=== PATIENT | female | born 1965 | race Caucasian/White ===

== ENCOUNTER 2017-03-11 17:40 | Emergency (ER) | payer OTHER ==
[~2017-03-11] VITALS: Ht 152.4 cm; Wt 65.9 kg
[~2017-03-11 17:40] MED LIST: CALC-719 PO; DULO20CA30 PO; FOLI1TAB15 PO; HYD25 PO; LORA5SOL30 PO
[2017-03-11 17:44] VITALS: BP 124/81
[2017-03-11] MEDS ORDERED: ETAN25DI SQ (17:46)
[2017-03-11] MEDS ORDERED: CHOL50004 PO (17:46)
[2017-03-11] MEDS ORDERED: MECL-111 PO (17:46)
[2017-03-11] MEDS ORDERED: OMEP20 PO (17:46)
== END 2017-03-11 19:20 | disposition left against medical advice (07) ==
LOC: EMS 17:41
DX: Z53.21 Procedure and treatment not carried out due to patient leaving prior to being seen by health care provider (principal)

== ENCOUNTER 2017-05-11 10:35 | Emergency (ER) | payer OTHER ==
[~2017-05-11] VITALS: Ht 157.5 cm; Wt 75.0 kg
[~2017-05-11 10:35] MED LIST changes: -CALC-719 PO; +CHOL50004 PO; -DULO20CA30 PO; +ETAN25DI SQ; +MECL-111 PO; +OMEP20 PO
[2017-05-11] MEDS ORDERED: DOXY100C PO (10:48)
[2017-05-11] MEDS ORDERED: LORA10TA7 PO (14:53)
[2017-05-11] MEDS ORDERED: ACETAMINOPHEN 325 MG TABLET PO ONE (15:00)
[2017-05-11] MEDS ORDERED: CefTRIAXone SODIUM 1 GM/VIAL IM ONE (15:00)
[2017-05-11] MEDS ORDERED: LIDOCAINE HCL/PF 1% 2 ML VIAL IM ONE (15:00)
[2017-05-11 16:05] VITALS: BP 138/80
== END 2017-05-11 16:19 | disposition home or self-care (01) ==
LOC: EMS 10:36
DX: L03.116 Cellulitis of left lower limb (principal)
CPT/HCPCS: 96372; 99283; J0696; J3490

== ENCOUNTER 2017-10-05 09:25 | Emergency (ER) | payer OTHER ==
[~2017-10-05] VITALS: Ht 162.6 cm; Wt 74.1 kg
[~2017-10-05 09:25] MED LIST changes: +DOXY100C PO; +LORA10TA7 PO; -LORA5SOL30 PO; -MECL-111 PO
[2017-10-05 10:24] VITALS: BP 135/90
[2017-10-05] MEDS ORDERED: OxyCODONE HCL/ACETAMINOPHEN 5-325 MG TABLET PO ONE (11:00)
[2017-10-05] MEDS ORDERED: ONDANSETRON HCL 4 MG TABLET PO ONE (11:00)
== END 2017-10-05 11:21 | disposition home or self-care (01) ==
LOC: EMS 09:28
DX: H60.91 Unspecified otitis externa, right ear (principal); J32.9 Chronic sinusitis, unspecified; F32.9 Major depressive disorder, single episode, unspecified; F41.9 Anxiety disorder, unspecified; Z87.891 Personal history of nicotine dependence; Z79.899 Other long term (current) drug therapy
CPT/HCPCS: 99283; Q0162

== ENCOUNTER 2018-09-28 13:18 | Emergency (ER) | payer OTHER ==
[~2018-09-28] VITALS: Ht 157.5 cm; Wt 81.8 kg
[~2018-09-28 13:18] MED LIST changes: -DOXY100C PO; -HYD25 PO; -LORA10TA7 PO
[2018-09-28 15:43] LABS: BASOPHILS % (AUTO) 0.7 % (0.0-2.0); EOSINOPHILS % (AUTO) 3.3 % (1.0-6.0); HEMATOCRIT 42.7 % (36-46); HEMOGLOBIN 14.5 g/dL (12.0-16.0); LYMPHOCYTES # (AUTO) 3.4 K/uL (1.0-4.8); LYMPHOCYTES % (AUTO) 49.4 % (22.0-44.0); MEAN CORPUSCULAR HEMOGLOBIN 31.5 pg (26.0-34.0); MEAN CORPUSCULAR VOLUME 93 fL (80-100); MONOCYTES # (AUTO) 0.7 K/uL (0.1-1.0); MONOCYTES % (AUTO) 9.9 % (2.0-9.0); NEUTROPHILS # (AUTO) 2.5 K/uL (1.8-7.7); NEUTROPHILS % (AUTO) 36.7 % (40.0-70.0); PLATELET COUNT (AUTO) 158 K/uL (150-450); RED BLOOD CELL COUNT(AUTO) 4.61 MIL/uL (4.00-5.20); RED CELL DISTRIBUTION WIDTH 12.8 % (11.5-14.5)
[2018-09-28 15:53] LABS: ANION GAP 12 mmol/L (8-16); CALCIUM, TOTAL 9.2 mg/dL (8.8-10.5); CARBON DIOXIDE 24 mmol/L (22-29); CHLORIDE 103 mmol/L (98-107); CREATININE 0.76 mg/dL (0.60-1.30); GLOMERULAR FILTR. RATE CALC > 60 mL/min (>60); GLUCOSE,RANDOM 87 mg/dL (70-110); POTASSIUM 3.9 mmol/L (3.5-5.1); SODIUM SERUM 139 mmol/L (136-145); UREA NITROGEN, BLOOD 11 mg/dL (7-18)
[2018-09-28 15:54] VITALS: BP 109/69
[2018-09-28 15:59] LABS: ALANINE AMINOTRANSFERASE 104 U/L (12-78); ALBUMIN 3.8 g/dL (3.4-5.0); ALKALINE PHOSPHATASE 76 U/L (46-116); ASPARTATE AMINOTRANSFERASE 65 U/L (15-37); BILIRUBIN,TOTAL 0.9 mg/dL (0.1-1.0); TOTAL PROTEIN, SERUM 8.3 g/dL (6.4-8.2)
== END 2018-09-28 16:32 | disposition home or self-care (01) ==
LOC: EMS 13:18
DX: R42 Dizziness and giddiness (principal); H92.01 Otalgia, right ear; F41.9 Anxiety disorder, unspecified; F32.9 Major depressive disorder, single episode, unspecified; M19.90 Unspecified osteoarthritis, unspecified site; Z87.891 Personal history of nicotine dependence

== ENCOUNTER 2021-04-02 13:08 | Emergency (ER) | payer OTHER ==
[~2021-04-02] VITALS: Ht 154.9 cm; Wt 67.5 kg
[~2021-04-02 13:08] MED LIST changes: -ETAN25DI SQ; +ETAN25SY SQ
[2021-04-02 15:44] VITALS: BP 124/78
== END 2021-04-02 15:41 | disposition home or self-care (01) ==
LOC: EMS 13:08
DX: S61.451A Open bite of right hand, initial encounter (principal); I10 Essential (primary) hypertension; Z79.899 Other long term (current) drug therapy; W54.0XXA Bitten by dog, initial encounter; Y93.89 Activity, other specified; Y92.89 Other specified places as the place of occurrence of the external cause; Y99.8 Other external cause status
CPT/HCPCS: 99283

== ENCOUNTER 2021-07-01 13:32 | Emergency (ER) | payer OTHER ==
[~2021-07-01] VITALS: Ht 154.9 cm; Wt 62.3 kg
[2021-07-01 13:34] VITALS: BP 119/86
[2021-07-01] MEDS ORDERED: IBUP-1554 PO (14:05)
[2021-07-01] MEDS ORDERED: DIPH25TA20 PO (14:05)
== END 2021-07-01 14:22 | disposition home or self-care (01) ==
LOC: EMS 13:32
DX: S40.862A Insect bite (nonvenomous) of left upper arm, initial encounter (principal); I10 Essential (primary) hypertension; W57.XXXA Bitten or stung by nonvenomous insect and other nonvenomous arthropods, initial encounter; Y93.89 Activity, other specified; Y92.89 Other specified places as the place of occurrence of the external cause; Y99.8 Other external cause status
CPT/HCPCS: 99282; Z7502

== ENCOUNTER 2022-07-24 11:56 | Emergency (ER) | payer OTHER ==
[~2022-07-24] VITALS: Ht 162.6 cm; Wt 65.9 kg
[~2022-07-24 11:56] MED LIST changes: +DIPH25TA20 PO; +IBUP-1554 PO
[2022-07-24] MEDS ORDERED: ACYC-138 PO (12:15)
[2022-07-24] MEDS ORDERED: CALC-1038 PO (12:15)
[2022-07-24 14:00] VITALS: BP 130/83
== END 2022-07-24 16:09 | disposition home or self-care (01) ==
LOC: EMS 12:02
DX: S62.615A Displaced fracture of proximal phalanx of left ring finger, initial encounter for closed fracture (principal); S66.115A Strain of flexor muscle, fascia and tendon of left ring finger at wrist and hand level, initial encounter; I10 Essential (primary) hypertension; L40.9 Psoriasis, unspecified; Z87.891 Personal history of nicotine dependence; Z98.890 Other specified postprocedural states; W22.8XXA Striking against or struck by other objects, initial encounter; Y93.89 Activity, other specified; Y92.89 Other specified places as the place of occurrence of the external cause; Y99.8 Other external cause status
CPT/HCPCS: 99283

== ENCOUNTER 2022-11-19 02:57 | Emergency (ER) | payer OTHER ==
[~2022-11-19] VITALS: Ht 157.5 cm; Wt 63.6 kg
[~2022-11-19 02:57] MED LIST changes: +ACYC-138 PO; +CALC-1038 PO; -DIPH25TA20 PO; -IBUP-1554 PO
[2022-11-19 02:59] VITALS: TEMP 97.9
[2022-11-19 04:53] LABS: BASOPHILS % (AUTO) 1.3 % (0.0-2.0); EOSINOPHILS % (AUTO) 2.4 % (1.0-6.0); HEMATOCRIT 40.3 % (36-46); LYMPHOCYTES # (AUTO) 1.6 K/uL (1.0-4.8); LYMPHOCYTES % (AUTO) 27.3 % (22.0-44.0); MEAN CORPUSCULAR HEMOGLOBIN 32.5 pg (26.0-34.0); MEAN CORPUSCULAR HGB CONC 34.6 G/dL (31.0-37.0); MEAN CORPUSCULAR VOLUME 94 fL (80-100); MONOCYTES # (AUTO) 0.5 K/uL (0.1-1.0); MONOCYTES % (AUTO) 8.1 % (2.0-9.0); NEUTROPHILS # (AUTO) 3.6 K/uL (1.8-7.7); NEUTROPHILS % (AUTO) 60.9 % (40.0-70.0); PLATELET COUNT (AUTO) 134 K/uL (150-450); RED BLOOD CELL COUNT(AUTO) 4.29 MIL/uL (4.00-5.20)
[2022-11-19 05:09] LABS: BILIRUBIN,TOTAL 0.8 mg/dL (0.1-1.0); CALCIUM, TOTAL 9.5 mg/dL (8.8-10.5); CARBON DIOXIDE 23 mmol/L (22-29); GLUCOSE,RANDOM 133 mg/dL (70-110)
[2022-11-19 05:22] LABS: B-TYPE NATRIURETIC PEPTIDE 26 pg/mL (0-100)
[2022-11-19 05:30] LABS: ALANINE AMINOTRANSFERASE 25 U/L (12-78); ALBUMIN 4.1 g/dL (3.4-5.0); ALKALINE PHOSPHATASE 84 U/L (46-116); ANION GAP 10 mmol/L (8-16); CHLORIDE 105 mmol/L (98-107); CREATININE 0.81 mg/dL (0.60-1.30); GLOMERULAR FILTR. RATE CALC > 60 mL/min (>60); POTASSIUM 3.7 mmol/L (3.5-5.1); SODIUM SERUM 138 mmol/L (136-145); TOTAL PROTEIN, SERUM 8.2 g/dL (6.4-8.2)
[2022-11-19 05:53] LABS: ASPARTATE AMINOTRANSFERASE 25 U/L (15-37)
[2022-11-19] MEDS ORDERED: LORazepam 1 MG TABLET PO ONE (07:45)
[2022-11-19 09:20] VITALS: BP 135/90; PULSE 75; RESP 16
[2022-11-19] MEDS ORDERED: HYDR-4808 PO (09:47)
== END 2022-11-19 09:59 | disposition home or self-care (01) ==
LOC: EMS 02:57
DX: F41.9 Anxiety disorder, unspecified (principal); F32.A Depression, unspecified; I10 Essential (primary) hypertension; Z87.891 Personal history of nicotine dependence; Z98.890 Other specified postprocedural states
CPT/HCPCS: 71045; 80053; 83880; 84484; 85025; 85379; 93005; 99285; 36415-L1; 36415-TC

== ENCOUNTER 2022-11-20 07:25 | Emergency (ER) | payer OTHER ==
[~2022-11-20] VITALS: Ht 157.5 cm; Wt 63.6 kg
[~2022-11-20 07:25] MED LIST changes: +HYDR-4808 PO
[2022-11-20 07:38] VITALS: TEMP 97.9
[2022-11-20] MEDS ORDERED: SODIUM CHLORIDE 0.9% 1,000 ML IV ONE (12:30)
[2022-11-20 12:59] LABS: APPEARANCE,URINE HAZY (CLEAR); BILIRUBIN,URINE NEGATIVE (NEGATIVE); GLUCOSE, URINE (UA) NEGATIVE (NEGATIVE); KETONES,URINE 80-100 mg/dL (NEGATIVE); LEUKOCYTE ESTERASE ,URINE NEGATIVE (NEGATIVE); NITRATE,URINE NEGATIVE (NEGATIVE); OCCULT BLOOD,URINE NEGATIVE (NEGATIVE); PH,URINE 6.5 (5.0-8.0); PROTEIN,URINE TRACE mg/dL (NEGATIVE); SPECIFIC GRAVITIY, URINE 1.022 (1.003-1.030)
[2022-11-20 13:08] LABS: BASOPHILS % (AUTO) 0.6 % (0.0-2.0); EOSINOPHILS % (AUTO) 0.3 % (1.0-6.0); HEMATOCRIT 41.8 % (36-46); HEMOGLOBIN 14.5 g/dL (12.0-16.0); LYMPHOCYTES # (AUTO) 1.8 K/uL (1.0-4.8); LYMPHOCYTES % (AUTO) 24.9 % (22.0-44.0); MEAN CORPUSCULAR HEMOGLOBIN 32.2 pg (26.0-34.0); MEAN CORPUSCULAR HGB CONC 34.7 G/dL (31.0-37.0); MEAN CORPUSCULAR VOLUME 93 fL (80-100); MONOCYTES # (AUTO) 0.4 K/uL (0.1-1.0); MONOCYTES % (AUTO) 5.5 % (2.0-9.0); NEUTROPHILS # (AUTO) 5.1 K/uL (1.8-7.7); NEUTROPHILS % (AUTO) 68.7 % (40.0-70.0); PLATELET COUNT (AUTO) 151 K/uL (150-450); RED CELL DISTRIBUTION WIDTH 12.8 % (11.5-14.5)
[2022-11-20 13:13] LABS: ANION GAP 10 mmol/L (8-16); CALCIUM, TOTAL 9.3 mg/dL (8.8-10.5); CARBON DIOXIDE 24 mmol/L (22-29); CHLORIDE 105 mmol/L (98-107); CREATININE 0.82 mg/dL (0.60-1.30); GLOMERULAR FILTR. RATE CALC > 60 mL/min (>60); GLUCOSE,RANDOM 114 mg/dL (70-110); POTASSIUM 3.5 mmol/L (3.5-5.1); SODIUM SERUM 139 mmol/L (136-145)
[2022-11-20 13:19] LABS: ALANINE AMINOTRANSFERASE 26 U/L (12-78); ALBUMIN 4.3 g/dL (3.4-5.0); ALKALINE PHOSPHATASE 74 U/L (46-116); ASPARTATE AMINOTRANSFERASE 27 U/L (15-37); TOTAL PROTEIN, SERUM 8.5 g/dL (6.4-8.2)
[2022-11-20 13:28] LABS: B-TYPE NATRIURETIC PEPTIDE 45 pg/mL (0-100)
[2022-11-20] MEDS ORDERED: LORazepam 1 MG TABLET PO ONE (16:15)
[2022-11-20 16:30] VITALS: BP 124/67; PULSE 90; RESP 18
== END 2022-11-20 16:53 | disposition home or self-care (01) ==
LOC: EMS 07:25
DX: F41.9 Anxiety disorder, unspecified (principal); E86.0 Dehydration; F32.A Depression, unspecified; I10 Essential (primary) hypertension; Z87.891 Personal history of nicotine dependence; Z98.890 Other specified postprocedural states
CPT/HCPCS: 80053; 81003; 83880; 84484; 85025; 93005; 96360; 99285; 36415-L1; 36415-TC

== ENCOUNTER 2023-06-21 08:40 | Emergency (ER) | payer OTHER ==
[~2023-06-21] VITALS: Ht 154.9 cm; Wt 75.5 kg
[~2023-06-21 08:40] MED LIST changes: -OMEP20 PO
[2023-06-21 08:42] VITALS: BP 156/90; PULSE 118; RESP 24; TEMP 98.1
[2023-06-21] MEDS ORDERED: LUBI8CAP5 PO (08:59)
[2023-06-21 10:22] LABS: BASOPHILS % (AUTO) 0.9 % (0.0-2.0); EOSINOPHILS % (AUTO) 0.5 % (1.0-6.0); HEMATOCRIT 41.3 % (36-46); HEMOGLOBIN 14.6 g/dL (12.0-16.0); LYMPHOCYTES % (AUTO) 27.3 % (22.0-44.0); MEAN CORPUSCULAR HEMOGLOBIN 32.3 pg (26.0-34.0); MEAN CORPUSCULAR HGB CONC 35.3 G/dL (31.0-37.0); MEAN CORPUSCULAR VOLUME 92 fL (80-100); MONOCYTES # (AUTO) 0.5 K/uL (0.1-1.0); MONOCYTES % (AUTO) 6.6 % (2.0-9.0); NEUTROPHILS # (AUTO) 4.8 K/uL (1.8-7.7); NEUTROPHILS % (AUTO) 64.7 % (40.0-70.0); PLATELET COUNT (AUTO) 155 K/uL (150-450); RED BLOOD CELL COUNT(AUTO) 4.51 MIL/uL (4.00-5.20); RED CELL DISTRIBUTION WIDTH 12.4 % (11.5-14.5); WHITE BLOOD COUNT (AUTO) 7.4 K/uL (4.5-11.0)
[2023-06-21] MEDS: LORazepam 1 MG TABLET PO ONE (10:29)
[2023-06-21 10:32] LABS: ANION GAP 11 mmol/L (8-16); CALCIUM, TOTAL 9.5 mg/dL (8.8-10.5); CARBON DIOXIDE 27 mmol/L (22-29); CHLORIDE 103 mmol/L (98-107); CREATININE 0.75 mg/dL (0.60-1.30); GLOMERULAR FILTR. RATE CALC > 60 mL/min (>60); GLUCOSE,RANDOM 117 mg/dL (70-110); POTASSIUM 3.6 mmol/L (3.5-5.1); SODIUM SERUM 141 mmol/L (136-145); UREA NITROGEN, BLOOD 11 mg/dL (7-18)
[2023-06-21 10:39] LABS: ALANINE AMINOTRANSFERASE 34 U/L (12-78); ALBUMIN 4.6 g/dL (3.4-5.0); ALKALINE PHOSPHATASE 67 U/L (46-116); ASPARTATE AMINOTRANSFERASE 35 U/L (15-37); BILIRUBIN,TOTAL 1.9 mg/dL (0.1-1.0); TOTAL PROTEIN, SERUM 8.3 g/dL (6.4-8.2)
[2023-06-21 10:45] LABS: ALCOHOL, BLOOD (SERUM) < 3 mg/dL (0-10)
[2023-06-21] MEDS: ONDANSETRON HCL 4 MG TABLET PO ONE (11:08)
[2023-06-21 11:32] LABS: COVID AG,FIA SOURCE NASAL SWAB
[2023-06-21 11:57] LABS: SARS-COV2 (COVID) ANTIGEN,FIA Negative (Negative)
== END 2023-06-21 13:01 | disposition home or self-care (01) ==
LOC: EMS 08:45
DX: F41.9 Anxiety disorder, unspecified (principal); M19.90 Unspecified osteoarthritis, unspecified site; F32.A Depression, unspecified; I10 Essential (primary) hypertension; Z87.891 Personal history of nicotine dependence; Z98.890 Other specified postprocedural states; Z20.822 Contact with and (suspected) exposure to COVID-19
CPT/HCPCS: 99283; 87426; 80053; 85025; 36415; G0480; Q0162

== ENCOUNTER 2023-06-26 06:06 | Emergency (ER) | payer OTHER ==
[~2023-06-26] VITALS: Ht 154.9 cm; Wt 72.0 kg
[~2023-06-26 06:06] MED LIST changes: -ACYC-138 PO; +LUBI8CAP5 PO
[2023-06-26 06:15] VITALS: TEMP 98.8
[2023-06-26] MEDS ORDERED: BUPR-50 PO (06:19)
[2023-06-26] MEDS ORDERED: MIRT-89 PO (06:19)
[2023-06-26 06:47] LABS: BASOPHILS % (AUTO) 0.9 % (0.0-2.0); EOSINOPHILS % (AUTO) 2.5 % (1.0-6.0); HEMATOCRIT 41.3 % (36-46); HEMOGLOBIN 14.6 g/dL (12.0-16.0); LYMPHOCYTES # (AUTO) 1.8 K/uL (1.0-4.8); LYMPHOCYTES % (AUTO) 36.8 % (22.0-44.0); MEAN CORPUSCULAR HEMOGLOBIN 32.8 pg (26.0-34.0); MEAN CORPUSCULAR HGB CONC 35.4 G/dL (31.0-37.0); MEAN CORPUSCULAR VOLUME 93 fL (80-100); MONOCYTES # (AUTO) 0.4 K/uL (0.1-1.0); NEUTROPHILS # (AUTO) 2.5 K/uL (1.8-7.7); NEUTROPHILS % (AUTO) 51.8 % (40.0-70.0); PLATELET COUNT (AUTO) 149 K/uL (150-450); RED BLOOD CELL COUNT(AUTO) 4.45 MIL/uL (4.00-5.20); RED CELL DISTRIBUTION WIDTH 12.8 % (11.5-14.5); WHITE BLOOD COUNT (AUTO) 4.8 K/uL (4.5-11.0)
[2023-06-26 06:53] LABS: ANION GAP 12 mmol/L (8-16); CALCIUM, TOTAL 9.6 mg/dL (8.8-10.5); CARBON DIOXIDE 27 mmol/L (22-29); CHLORIDE 102 mmol/L (98-107); CREATININE 0.84 mg/dL (0.60-1.30); GLOMERULAR FILTR. RATE CALC > 60 mL/min (>60); GLUCOSE,RANDOM 132 mg/dL (70-110); POTASSIUM 3.8 mmol/L (3.5-5.1); SODIUM SERUM 141 mmol/L (136-145); UREA NITROGEN, BLOOD 11 mg/dL (7-18)
[2023-06-26 06:59] LABS: ALANINE AMINOTRANSFERASE 33 U/L (12-78); ALBUMIN 4.4 g/dL (3.4-5.0); ALKALINE PHOSPHATASE 68 U/L (46-116); ASPARTATE AMINOTRANSFERASE 25 U/L (15-37); BILIRUBIN,TOTAL 1.1 mg/dL (0.1-1.0); CREATINE KINASE, TOTAL ONLY 64 U/L (26-192); LIPASE 50 U/L (16-77); TOTAL PROTEIN, SERUM 8.2 g/dL (6.4-8.2)
[2023-06-26 07:02] LABS: TROPONIN I-HIGH SENSITIVITY Less Than 4 ng/L (<51)
[2023-06-26] MEDS ORDERED: IOHEXOL 350 MG/ML 100 ML VIAL ONE (07:08)
[2023-06-26] MEDS ORDERED: SODIUM CHLORIDE 0.9% 100 ML ONE (07:08)
[2023-06-26 07:11] LABS: ALCOHOL, BLOOD (SERUM) < 3 mg/dL (0-10); B-TYPE NATRIURETIC PEPTIDE 14 pg/mL (0-100)
[2023-06-26] MEDS: ONDANSETRON HCL 4 MG/2 ML VIAL IVP ONE (07:14)
[2023-06-26] MEDS: ACETAMINOPHEN 500 MG TABLET PO ONE (07:14)
[2023-06-26 07:23] VITALS: BP 154/85; PULSE 80; RESP 22
[2023-06-26] MEDS: LORazepam 2 MG/ML VIAL IVP ONE (07:31)
[2023-06-26 09:04] LABS: APPEARANCE,URINE CLEAR (CLEAR); BILIRUBIN,URINE NEGATIVE (NEGATIVE); COLOR,URINE COLORLESS (YELLOW); GLUCOSE, URINE (UA) NEGATIVE (NEGATIVE); KETONES,URINE NEGATIVE (NEGATIVE); LEUKOCYTE ESTERASE ,URINE NEGATIVE (NEGATIVE); NITRATE,URINE NEGATIVE (NEGATIVE); OCCULT BLOOD,URINE NEGATIVE (NEGATIVE); PH,URINE 7.5 (5.0-8.0); PH,URINE DRUG SCREEN 7.5 (5.0-8.0); PROTEIN,URINE NEGATIVE (NEGATIVE); SPECIFIC GRAVITIY, URINE 1.022 (1.003-1.030); UROBILINOGEN,URINE <=1.0 mg/dL (<=1.0)
[2023-06-26 09:11] LABS: ALCOHOL, URINE DRUG SCREEN NEGATIVE (NEGATIVE); AMPHET/METH SCREEN,URINE NEGATIVE (NEGATIVE); BARBITURATE SCREEN, URINE NEGATIVE (NEGATIVE); BENZODIAZEPINES SCREEN,URINE NEGATIVE (NEGATIVE); CANNABINOID SCREEN,URINE POSITIVE (NEGATIVE); COCAINE SCREEN,URINE NEGATIVE (NEGATIVE); METHADONE SCREEN, URINE NEGATIVE (NEGATIVE); OPIATE SCREEN,URINE NEGATIVE (NEGATIVE); PHENCYCLIDINE SCREEN,URINE NEGATIVE (NEGATIVE)
== END 2023-06-26 09:48 | disposition home or self-care (01) ==
LOC: EMS 06:11
DX: F41.9 Anxiety disorder, unspecified (principal); M19.90 Unspecified osteoarthritis, unspecified site; F32.A Depression, unspecified; I10 Essential (primary) hypertension; Z87.891 Personal history of nicotine dependence; Z98.890 Other specified postprocedural states
CPT/HCPCS: 99285; 74177; 96374; 71045; 96375; 80053; 82550; 83690; 83880; 84484; 84703; 85025; 36415; 93005; 80307; 81003; J2060; J2405; Q9967; J7050; G0480

== ENCOUNTER 2023-06-30 17:05 | Emergency (ER) | payer OTHER ==
[~2023-06-30] VITALS: Ht 152.4 cm; Wt 76.4 kg
[~2023-06-30 17:05] MED LIST changes: +BUPR-50 PO; -HYDR-4808 PO; +MIRT-89 PO
[2023-06-30 17:09] VITALS: BP 167/98; PULSE 114; RESP 20; TEMP 98.3
== END 2023-06-30 22:10 | disposition left against medical advice (07) ==
LOC: EMS 22:10
DX: R00.2 Palpitations (principal); R42 Dizziness and giddiness; Z53.21 Procedure and treatment not carried out due to patient leaving prior to being seen by health care provider
CPT/HCPCS: 93005; 99281; Z7502

== ENCOUNTER 2023-07-02 18:48 | Emergency (ER) | payer OTHER ==
[~2023-07-02] VITALS: Ht 154.9 cm; Wt 73.6 kg
[2023-07-02] MEDS ORDERED: ESCI5TAB16 PO (19:11)
[2023-07-02] MEDS ORDERED: ROFL60CR TP (19:11)
[2023-07-02] MEDS ORDERED: ACYC400T20 PO (19:11)
[2023-07-02] MEDS ORDERED: LORA-1000 PO (19:11)
[2023-07-02] MEDS ORDERED: HYDR-4268 TP (19:11)
[2023-07-02 19:47] LABS: BASOPHILS % (AUTO) 1.2 % (0.0-2.0); EOSINOPHILS % (AUTO) 1.4 % (1.0-6.0); HEMATOCRIT 40.7 % (36-46); HEMOGLOBIN 14.3 g/dL (12.0-16.0); LYMPHOCYTES % (AUTO) 38.3 % (22.0-44.0); MEAN CORPUSCULAR HEMOGLOBIN 32.7 pg (26.0-34.0); MEAN CORPUSCULAR HGB CONC 35.2 G/dL (31.0-37.0); MEAN CORPUSCULAR VOLUME 93 fL (80-100); MONOCYTES # (AUTO) 0.6 K/uL (0.1-1.0); MONOCYTES % (AUTO) 7.8 % (2.0-9.0); NEUTROPHILS # (AUTO) 4.1 K/uL (1.8-7.7); NEUTROPHILS % (AUTO) 51.3 % (40.0-70.0); PLATELET COUNT (AUTO) 173 K/uL (150-450); RED BLOOD CELL COUNT(AUTO) 4.37 MIL/uL (4.00-5.20); RED CELL DISTRIBUTION WIDTH 13.6 % (11.5-14.5); WHITE BLOOD COUNT (AUTO) 7.9 K/uL (4.5-11.0)
[2023-07-02 19:57] LABS: ANION GAP 10 mmol/L (8-16); CARBON DIOXIDE 28 mmol/L (22-29); CHLORIDE 102 mmol/L (98-107); CREATININE 0.74 mg/dL (0.60-1.30); GLOMERULAR FILTR. RATE CALC > 60 mL/min (>60); GLUCOSE,RANDOM 112 mg/dL (70-110); POTASSIUM 3.7 mmol/L (3.5-5.1); SODIUM SERUM 140 mmol/L (136-145); UREA NITROGEN, BLOOD 8 mg/dL (7-18)
[2023-07-02 20:06] LABS: TROPONIN I-HIGH SENSITIVITY 6 ng/L (<51)
[2023-07-02 22:10] VITALS: BP 134/95; PULSE 81; RESP 16; TEMP 98
== END 2023-07-02 22:11 | disposition home or self-care (01) ==
LOC: EMS 18:48
DX: I10 Essential (primary) hypertension (principal); F41.9 Anxiety disorder, unspecified; F32.A Depression, unspecified; Z87.891 Personal history of nicotine dependence
CPT/HCPCS: 80048; 84484; 85025; 93005; 99284

== ENCOUNTER 2023-07-05 09:34 | Emergency (ER) | payer OTHER ==
[~2023-07-05] VITALS: Ht 154.9 cm; Wt 75.0 kg
[~2023-07-05 09:34] MED LIST changes: +ACYC400T20 PO; -BUPR-50 PO; +ESCI5TAB16 PO; +HYDR-4268 TP; +LORA-1000 PO; -LUBI8CAP5 PO; -MIRT-89 PO; +ROFL60CR TP
[2023-07-05 09:36] VITALS: TEMP 98.2
[2023-07-05] MEDS ORDERED: ESCI-8 PO (09:43)
[2023-07-05] MEDS ORDERED: LUBI8CAP5 PO (09:43)
[2023-07-05] MEDS ORDERED: CLON0.1T2 PO (09:43)
[2023-07-05] MEDS ORDERED: BUPR-49 PO (09:43)
[2023-07-05] MEDS ORDERED: MIRT-92 PO (09:43)
[2023-07-05] MEDS ORDERED: ONDA-104 PO (09:43)
[2023-07-05] MEDS: SODIUM CHLORIDE 0.9% 1,000 ML IV ONE (10:40)
[2023-07-05] MEDS: ONDANSETRON HCL 4 MG/2 ML VIAL IVP ONE (10:41)
[2023-07-05 10:44] LABS: BASOPHILS % (AUTO) 0.6 % (0.0-2.0); EOSINOPHILS % (AUTO) 0.4 % (1.0-6.0); HEMATOCRIT 42.1 % (36-46); HEMOGLOBIN 14.8 g/dL (12.0-16.0); LYMPHOCYTES # (AUTO) 1.9 K/uL (1.0-4.8); LYMPHOCYTES % (AUTO) 29.9 % (22.0-44.0); MEAN CORPUSCULAR HEMOGLOBIN 32.8 pg (26.0-34.0); MEAN CORPUSCULAR HGB CONC 35.2 G/dL (31.0-37.0); MEAN CORPUSCULAR VOLUME 93 fL (80-100); MONOCYTES # (AUTO) 0.4 K/uL (0.1-1.0); MONOCYTES % (AUTO) 6.9 % (2.0-9.0); NEUTROPHILS # (AUTO) 3.8 K/uL (1.8-7.7); NEUTROPHILS % (AUTO) 62.2 % (40.0-70.0); PLATELET COUNT (AUTO) 165 K/uL (150-450); RED BLOOD CELL COUNT(AUTO) 4.51 MIL/uL (4.00-5.20); WHITE BLOOD COUNT (AUTO) 6.2 K/uL (4.5-11.0)
[2023-07-05 10:53] LABS: ANION GAP 8 mmol/L (8-16); CALCIUM, TOTAL 9.7 mg/dL (8.8-10.5); CARBON DIOXIDE 27 mmol/L (22-29); CHLORIDE 102 mmol/L (98-107); CREATININE 0.82 mg/dL (0.60-1.30); GLOMERULAR FILTR. RATE CALC > 60 mL/min (>60); GLUCOSE,RANDOM 123 mg/dL (70-110); POTASSIUM 3.6 mmol/L (3.5-5.1); SODIUM SERUM 137 mmol/L (136-145); UREA NITROGEN, BLOOD 4 mg/dL (7-18)
[2023-07-05 11:00] LABS: ALANINE AMINOTRANSFERASE 34 U/L (12-78); ALBUMIN 4.1 g/dL (3.4-5.0); ALKALINE PHOSPHATASE 66 U/L (46-116); ASPARTATE AMINOTRANSFERASE 29 U/L (15-37); BILIRUBIN,TOTAL 1.2 mg/dL (0.1-1.0); LIPASE 31 U/L (16-77); TOTAL PROTEIN, SERUM 8.1 g/dL (6.4-8.2)
[2023-07-05 11:03] LABS: TROPONIN I-HIGH SENSITIVITY Less Than 4 ng/L (<51)
[2023-07-05] MEDS: LORazepam 2 MG/ML VIAL IVP ONE (11:06)
[2023-07-05 13:03] LABS: APPEARANCE,URINE CLEAR (CLEAR); BILIRUBIN,URINE NEGATIVE (NEGATIVE); COLOR,URINE COLORLESS (YELLOW); GLUCOSE, URINE (UA) NEGATIVE (NEGATIVE); KETONES,URINE NEGATIVE (NEGATIVE); LEUKOCYTE ESTERASE ,URINE NEGATIVE (NEGATIVE); NITRATE,URINE NEGATIVE (NEGATIVE); OCCULT BLOOD,URINE NEGATIVE (NEGATIVE); PH,URINE 7.5 (5.0-8.0); PROTEIN,URINE NEGATIVE (NEGATIVE); SPECIFIC GRAVITIY, URINE 1.006 (1.003-1.030); UROBILINOGEN,URINE <=1.0 mg/dL (<=1.0)
[2023-07-05 13:45] VITALS: BP 145/83; PULSE 80; RESP 14
[2023-07-05] MEDS ORDERED: FAMO20 PO (13:46)
== END 2023-07-05 14:04 | disposition home or self-care (01) ==
LOC: EMS 09:38
DX: K58.9 Irritable bowel syndrome, unspecified (principal); F41.9 Anxiety disorder, unspecified; M19.90 Unspecified osteoarthritis, unspecified site; F32.A Depression, unspecified; I10 Essential (primary) hypertension; Z87.891 Personal history of nicotine dependence; Z98.890 Other specified postprocedural states
CPT/HCPCS: 99285; 74176; 96374; 76705; 96361; 96375; 80053; 81003; 83690; 84484; 85025; 36415; 93005; J2405; J7030

== ENCOUNTER 2023-07-07 07:10 | Inpatient (IN) | payer MEDICAID, OTHER ==
[~2023-07-07] VITALS: Ht 154.9 cm; Wt 71.2 kg
[~2023-07-07 07:10] MED LIST changes: -ACYC400T20 PO; +BUPR-49 PO; -CALC-1038 PO; -CHOL50004 PO; +CLON0.1T2 PO; +ESCI-8 PO; -ESCI5TAB16 PO; +FAMO20 PO; -FOLI1TAB15 PO; -HYDR-4268 TP; +LUBI8CAP5 PO; +MIRT-92 PO; +ONDA-104 PO; -ROFL60CR TP
[2023-07-07 08:28] LABS: BASOPHILS % (AUTO) 0.7 % (0.0-2.0); EOSINOPHILS % (AUTO) 0.2 % (1.0-6.0); HEMOGLOBIN 14.3 g/dL (12.0-16.0); LYMPHOCYTES # (AUTO) 1.2 K/uL (1.0-4.8); LYMPHOCYTES % (AUTO) 20.2 % (22.0-44.0); MEAN CORPUSCULAR HEMOGLOBIN 32.8 pg (26.0-34.0); MEAN CORPUSCULAR VOLUME 94 fL (80-100); MONOCYTES # (AUTO) 0.3 K/uL (0.1-1.0); MONOCYTES % (AUTO) 5.5 % (2.0-9.0); NEUTROPHILS # (AUTO) 4.2 K/uL (1.8-7.7); NEUTROPHILS % (AUTO) 73.4 % (40.0-70.0); PLATELET COUNT (AUTO) 148 K/uL (150-450); RED BLOOD CELL COUNT(AUTO) 4.37 MIL/uL (4.00-5.20); RED CELL DISTRIBUTION WIDTH 12.8 % (11.5-14.5); WHITE BLOOD COUNT (AUTO) 5.8 K/uL (4.5-11.0)
[2023-07-07 08:40] LABS: ANION GAP 11 mmol/L (8-16); CALCIUM, TOTAL 9.5 mg/dL (8.8-10.5); CARBON DIOXIDE 27 mmol/L (22-29); CHLORIDE 101 mmol/L (98-107); CREATININE 0.83 mg/dL (0.60-1.30); GLOMERULAR FILTR. RATE CALC > 60 mL/min (>60); GLUCOSE,RANDOM 118 mg/dL (70-110); POTASSIUM 3.7 mmol/L (3.5-5.1); SODIUM SERUM 139 mmol/L (136-145); UREA NITROGEN, BLOOD 6 mg/dL (7-18)
[2023-07-07 08:45] LABS: ALANINE AMINOTRANSFERASE 35 U/L (12-78); ALBUMIN 4.2 g/dL (3.4-5.0); ALKALINE PHOSPHATASE 66 U/L (46-116); ASPARTATE AMINOTRANSFERASE 27 U/L (15-37); BILIRUBIN,TOTAL 1.4 mg/dL (0.1-1.0); TOTAL PROTEIN, SERUM 8.2 g/dL (6.4-8.2)
[2023-07-07 08:59] LABS: ALCOHOL, BLOOD (SERUM) < 3 mg/dL (0-10)
[2023-07-07] MEDS: ONDANSETRON HCL 4 MG TABLET PO ONE (10:40)
[2023-07-07 10:46] LABS: ALCOHOL, URINE DRUG SCREEN NEGATIVE (NEGATIVE); AMPHET/METH SCREEN,URINE NEGATIVE (NEGATIVE); BARBITURATE SCREEN, URINE NEGATIVE (NEGATIVE); BENZODIAZEPINES SCREEN,URINE NEGATIVE (NEGATIVE); CANNABINOID SCREEN,URINE POSITIVE (NEGATIVE); COCAINE SCREEN,URINE NEGATIVE (NEGATIVE); METHADONE SCREEN, URINE NEGATIVE (NEGATIVE); OPIATE SCREEN,URINE NEGATIVE (NEGATIVE); PHENCYCLIDINE SCREEN,URINE NEGATIVE (NEGATIVE)
[2023-07-07] MEDS ORDERED: ZOLPIDEM TARTRATE 10 MG TABLET PO PRN (11:15)
[2023-07-07] MEDS ORDERED: OLANZapine 5 MG RAPDIS TABLET PO PRN (11:15)
[2023-07-07 11:32] LABS: APPEARANCE,URINE CLEAR (CLEAR); BILIRUBIN,URINE NEGATIVE (NEGATIVE); COLOR,URINE COLORLESS (YELLOW); GLUCOSE, URINE (UA) NEGATIVE (NEGATIVE); LEUKOCYTE ESTERASE ,URINE NEGATIVE (NEGATIVE); NITRATE,URINE NEGATIVE (NEGATIVE); OCCULT BLOOD,URINE NEGATIVE (NEGATIVE); PROTEIN,URINE NEGATIVE (NEGATIVE); SPECIFIC GRAVITIY, URINE 1.009 (1.003-1.030); UROBILINOGEN,URINE <=1.0 mg/dL (<=1.0)
[2023-07-07] MEDS ORDERED: FLUT16H NASAL (14:06)
[2023-07-07] MEDS ORDERED: CETI10TA58 PO (14:06)
[2023-07-07] MEDS ORDERED: CHOL200074 PO (14:06)
[2023-07-07] MEDS: LORazepam 2 MG TABLET PO PRN (16:49)
[2023-07-07 16:55] LABS: COVID AG,FIA SOURCE NASAL SWAB
[2023-07-07 17:16] LABS: SARS-COV2 (COVID) ANTIGEN,FIA Negative (Negative)
[2023-07-07] MEDS ORDERED: PROMETHAZINE HCL 25 MG TABLET PO PRN (20:45)
[2023-07-07] MEDS ORDERED: MAG HYDROX/ALUMINUM HYD/SIMETH ES 30 ML SUSPENSION UDCUP PO PRN (20:45)
[2023-07-07] MEDS ORDERED: LOPERAMIDE HCL 2 MG CAPSULE PO PRN (20:45)
[2023-07-07] MEDS ORDERED: TUBERCULIN, PURIFIED PROTEIN DERIVATIVE 5 TU/0.1 ML SYRINGE ID ONE (20:45)
[2023-07-07] MEDS ORDERED: HydrOXYzine PAMOATE 50 MG CAPSULE PO PRN (20:45)
[2023-07-07] MEDS ORDERED: GuaiFENesin/D-METHORPHAN [SUGAR-FREE] 200-20MG/10 ML SYRUP UDCUP PO PRN (20:45)
[2023-07-07] MEDS ORDERED: ACETAMINOPHEN 325 MG TABLET PO PRN (20:45)
[2023-07-07] MEDS: NALTREXONE HCL 50 MG TABLET PO SCH (21:37)
[2023-07-07] MEDS: MELATONIN 5 MG TABLET PO SCH (21:38)
[2023-07-07] MEDS: MIRTAZAPINE 15 MG TABLET PO SCH (21:38)
[2023-07-07 21:56] VITALS: BP 155/94; PULSE 105; RESP 20; TEMP 97.7
[2023-07-08 07:51] LABS: CHOL/HDL RATIO 3.5 (3.9-5.7); FREE T4 (FREE THYROXINE) 1.25 ng/dL (0.76-1.46); THYROID STIMULATING HORMONE 0.74 uIU/mL (0.36-3.74)
[2023-07-08 08:30] VITALS: BP 112/69; PULSE 83; RESP 18; TEMP 97.4
[2023-07-08] MEDS: DULoxetine HCL 20 MG CAPSULE PO SCH (10:25)
[2023-07-08] MEDS: CloNIDine HCL 0.1 MG TABLET PO SCH (10:25)
[2023-07-08] MEDS: PREGABALIN 25 MG CAPSULE PO SCH (10:25)
[2023-07-08] MEDS: FLUTICASONE PROPIONATE 50 MCG/SPRAY 16 GM NASAL SPRAY NASAL SCH (10:25)
[2023-07-08] MEDS: THIAMINE 100 MG TABLET PO SCH (10:25)
[2023-07-08] MEDS: LUBIPROSTONE 8 MCG CAPSULE PO SCH (10:26)
[2023-07-08] MEDS: FAMOTIDINE 20 MG TABLET PO SCH (10:26)
[2023-07-08] MEDS: CHOLECALCIFEROL (VIT D3) 2,000 UNITS [50 MCG] TABLET PO SCH (10:26)
[2023-07-08] MEDS: FOLIC ACID 1 MG TABLET PO SCH (10:26)
[2023-07-08] MEDS: MULTIVITAMINS WITH MINERALS, THERAPEUTIC TABLET PO SCH (10:26)
[2023-07-08] MEDS: CETIRIZINE HCL 10 MG TABLET PO SCH (10:26)
[2023-07-08] MEDS: OMEGA-3/DHA/EPA/FISH OIL 1,000 MG CAPSULE PO SCH (10:26)
[2023-07-08 16:56] VITALS: BP 111/76; PULSE 90
[2023-07-08] MEDS: MAGNESIUM HYDROXIDE SUSPENSION 30 ML UDCUP PO PRN (17:57)
[2023-07-08 22:42] VITALS: BP 91/64; PULSE 62; RESP 18; TEMP 98.6
[2023-07-09 08:30] VITALS: BP 125/91; PULSE 83; RESP 18; TEMP 98.2
[2023-07-09] MEDS ORDERED: PREG25 PO (16:14)
[2023-07-09] MEDS ORDERED: MELA5TAB40 PO (16:14)
[2023-07-09] MEDS ORDERED: MIRT-89 PO (16:14)
[2023-07-09] MEDS ORDERED: OMEG-135 PO (16:14)
[2023-07-09] MEDS ORDERED: NALT50TA33 PO (16:14)
[2023-07-09] MEDS ORDERED: DULO20CA71 PO (16:14)
== END 2023-07-09 18:59 | disposition home or self-care (01) | DRG 751 ==
LOC: EMS 07:11 → 3EI 14:56
PROVIDERS: ADMIT Psychiatry & Neurology Psychiatry; ATTEND Psychiatry & Neurology Psychiatry
PROC: GZHZZZZ Group Psychotherapy (ICD-10-PCS; principal; 2023-07-07)
PROC: GZ51ZZZ Individual Psychotherapy, Behavioral (ICD-10-PCS; 2023-07-07)
DX: F33.2 Major depressive disorder, recurrent severe without psychotic features (principal); G89.29 Other chronic pain; I10 Essential (primary) hypertension; Z20.822 Contact with and (suspected) exposure to COVID-19; J44.9 Chronic obstructive pulmonary disease, unspecified; L40.9 Psoriasis, unspecified; K58.9 Irritable bowel syndrome, unspecified; Z87.891 Personal history of nicotine dependence; Z79.899 Other long term (current) drug therapy
CPT/HCPCS: 80053; 80061; 80307; 81003; 82306; 83036; 84439; 84443; 85025; 86592; 99285; G0480; Q0162; Q9967

== ENCOUNTER 2023-08-05 20:39 | Emergency (ER) | payer OTHER ==
[~2023-08-05] VITALS: Ht 154.9 cm; Wt 72.7 kg
[~2023-08-05 20:39] MED LIST changes: -BUPR-49 PO; +CETI10TA58 PO; +CHOL200074 PO; +DICY20TA95 PO; +DULO20CA71 PO; -ESCI-8 PO; -ETAN25SY SQ; +FLUT16H NASAL; -LORA-1000 PO; +MELA5TAB40 PO; +MIRT-89 PO; -MIRT-92 PO; +NALT50TA33 PO; +OMEG-135 PO; -ONDA-104 PO; +POLY119P3 PO; +PREG25 PO
[2023-08-05] MEDS ORDERED: GABA-1216 PO (22:43)
[2023-08-05 22:45] VITALS: BP 140/78; PULSE 88; RESP 18; TEMP 98
== END 2023-08-05 23:00 | disposition home or self-care (01) ==
LOC: EMS 20:39
DX: G62.9 Polyneuropathy, unspecified (principal); F32.A Depression, unspecified; F41.9 Anxiety disorder, unspecified; I10 Essential (primary) hypertension; Z87.891 Personal history of nicotine dependence; Z98.890 Other specified postprocedural states
CPT/HCPCS: 99283

== ENCOUNTER 2023-08-23 08:47 | Emergency (ER) | payer OTHER ==
[~2023-08-23] VITALS: Ht 154.9 cm; Wt 74.0 kg
[~2023-08-23 08:47] MED LIST changes: +GABA-1216 PO
[2023-08-23 08:51] VITALS: BP 187/111; PULSE 111; RESP 16; TEMP 98.3
[2023-08-23] MEDS ORDERED: AMLO5TAB66 PO (09:13)
[2023-08-23] MEDS ORDERED: METO-408 PO (09:13)
[2023-08-23] MEDS ORDERED: LORA-1000 PO (09:13)
[2023-08-23] MEDS: MAG HYDROX/ALUMINUM HYD/SIMETH ES 30 ML SUSPENSION UDCUP PO ONE (11:30)
[2023-08-23] MEDS: IBUPROFEN 600 MG TABLET PO ONE (11:30)
[2023-08-23] MEDS: LORazepam 1 MG TABLET PO ONE (11:30)
== END 2023-08-23 11:50 | disposition home or self-care (01) ==
LOC: EMS 08:48
DX: F41.9 Anxiety disorder, unspecified (principal); I10 Essential (primary) hypertension; F32.A Depression, unspecified; Z87.891 Personal history of nicotine dependence; Z98.890 Other specified postprocedural states
CPT/HCPCS: 99284; Z7502; Z7610

== ENCOUNTER 2023-08-28 17:56 | Emergency (ER) | payer OTHER ==
[~2023-08-28] VITALS: Ht 152.4 cm; Wt 68.2 kg
[~2023-08-28 17:56] MED LIST changes: +AMLO5TAB66 PO; +LORA-1000 PO; +METO-408 PO
[2023-08-28 17:58] VITALS: BP 147/108; PULSE 118; RESP 18; TEMP 98.5
== END 2023-08-28 18:47 | disposition left against medical advice (07) ==
LOC: EMS 18:11
DX: R19.7 Diarrhea, unspecified (principal); Z53.21 Procedure and treatment not carried out due to patient leaving prior to being seen by health care provider
CPT/HCPCS: 99281; Z7502

== ENCOUNTER 2023-08-28 21:27 | Emergency (ER) | payer OTHER ==
[~2023-08-28] VITALS: Ht 154.9 cm; Wt 74.1 kg
[2023-08-28 22:30] LABS: BASOPHILS % (AUTO) 0.6 % (0.0-2.0); EOSINOPHILS % (AUTO) 2.6 % (1.0-6.0); HEMATOCRIT 38.4 % (36-46); HEMOGLOBIN 13.3 g/dL (12.0-16.0); LYMPHOCYTES # (AUTO) 1.7 K/uL (1.0-4.8); LYMPHOCYTES % (AUTO) 30.2 % (22.0-44.0); MEAN CORPUSCULAR HGB CONC 34.6 G/dL (31.0-37.0); MEAN CORPUSCULAR VOLUME 95 fL (80-100); MONOCYTES # (AUTO) 0.5 K/uL (0.1-1.0); MONOCYTES % (AUTO) 8.4 % (2.0-9.0); NEUTROPHILS # (AUTO) 3.3 K/uL (1.8-7.7); NEUTROPHILS % (AUTO) 58.2 % (40.0-70.0); PLATELET COUNT (AUTO) 136 K/uL (150-450); RED BLOOD CELL COUNT(AUTO) 4.03 MIL/uL (4.00-5.20); RED CELL DISTRIBUTION WIDTH 13.4 % (11.5-14.5); WHITE BLOOD COUNT (AUTO) 5.6 K/uL (4.5-11.0)
[2023-08-28 22:45] LABS: ANION GAP 4 mmol/L (8-16); CALCIUM, TOTAL 8.9 mg/dL (8.8-10.5); CARBON DIOXIDE 27 mmol/L (22-29); CHLORIDE 98 mmol/L (98-107); CREATININE 0.92 mg/dL (0.60-1.30); GLOMERULAR FILTR. RATE CALC > 60 mL/min (>60); GLUCOSE,RANDOM 133 mg/dL (70-110); POTASSIUM 3.2 mmol/L (3.5-5.1); SODIUM SERUM 129 mmol/L (136-145); UREA NITROGEN, BLOOD 7 mg/dL (7-18)
[2023-08-28 22:51] LABS: ALANINE AMINOTRANSFERASE 25 U/L (12-78); ALKALINE PHOSPHATASE 71 U/L (46-116); ASPARTATE AMINOTRANSFERASE 24 U/L (15-37); BILIRUBIN,TOTAL 0.5 mg/dL (0.1-1.0); LIPASE 42 U/L (16-77); TOTAL PROTEIN, SERUM 7.9 g/dL (6.4-8.2)
[2023-08-28 22:51] LABS: APPEARANCE,URINE CLEAR (CLEAR); BILIRUBIN,URINE NEGATIVE (NEGATIVE); COLOR,URINE COLORLESS (YELLOW); GLUCOSE, URINE (UA) NEGATIVE (NEGATIVE); KETONES,URINE NEGATIVE (NEGATIVE); LEUKOCYTE ESTERASE ,URINE NEGATIVE (NEGATIVE); NITRATE,URINE NEGATIVE (NEGATIVE); OCCULT BLOOD,URINE NEGATIVE (NEGATIVE); PROTEIN,URINE NEGATIVE (NEGATIVE); SPECIFIC GRAVITIY, URINE 1.004 (1.003-1.030); UROBILINOGEN,URINE <=1.0 mg/dL (<=1.0)
[2023-08-28] MEDS: PHENOBARB/HYOSCY/ATROPINE/SCOP 5 ML UDCUP ELIXIR PO ONE (23:10)
[2023-08-28 23:11] LABS: TROPONIN I-HIGH SENSITIVITY Less Than 4 ng/L (<51)
[2023-08-29] MEDS: POTASSIUM CHLORIDE 20 MEQ ER TABLET PO ONE (00:13)
[2023-08-29] MEDS: SODIUM CHLORIDE 0.9% 1,000 ML IV ONE (00:14)
[2023-08-29 01:00] VITALS: BP 105/65; PULSE 68; RESP 16; TEMP 98.4
[2023-08-30] MEDS ORDERED: OMEP40CA21 PO (11:33)
[2023-08-30] MEDS ORDERED: MIRT45TA83 PO (12:17)
[2023-08-30] MEDS ORDERED: ETAN50PE2 SQ (12:17)
[2023-08-30] MEDS ORDERED: BUPR-49 PO (12:17)
== END 2023-08-29 02:49 | disposition home or self-care (01) ==
LOC: EMS 21:39
DX: E87.1 Hypo-osmolality and hyponatremia (principal); R19.7 Diarrhea, unspecified; F41.9 Anxiety disorder, unspecified; M19.90 Unspecified osteoarthritis, unspecified site; F32.A Depression, unspecified; I10 Essential (primary) hypertension; Z87.891 Personal history of nicotine dependence; Z98.890 Other specified postprocedural states
CPT/HCPCS: 99283; 80053; 81003; 83690; 84484; 85025; 36415; 96360; 96361; J7030

== ENCOUNTER 2023-08-30 11:28 | Emergency (ER) | payer OTHER ==
[~2023-08-30] VITALS: Ht 154.9 cm; Wt 72.7 kg
[2023-08-30] MEDS ORDERED: OMEP40CA21 PO (11:33)
[2023-08-30] MEDS ORDERED: MIRT45TA83 PO (12:17)
[2023-08-30] MEDS ORDERED: ETAN50PE2 SQ (12:17)
[2023-08-30] MEDS ORDERED: BUPR-49 PO (12:17)
[2023-08-30 12:24] LABS: BASOPHILS % (AUTO) 0.9 % (0.0-2.0); EOSINOPHILS % (AUTO) 1.4 % (1.0-6.0); HEMATOCRIT 40.8 % (36-46); HEMOGLOBIN 14.2 g/dL (12.0-16.0); LYMPHOCYTES # (AUTO) 2.7 K/uL (1.0-4.8); LYMPHOCYTES % (AUTO) 43.7 % (22.0-44.0); MEAN CORPUSCULAR HGB CONC 34.8 G/dL (31.0-37.0); MEAN CORPUSCULAR VOLUME 95 fL (80-100); MONOCYTES # (AUTO) 0.5 K/uL (0.1-1.0); MONOCYTES % (AUTO) 8.1 % (2.0-9.0); NEUTROPHILS # (AUTO) 2.8 K/uL (1.8-7.7); NEUTROPHILS % (AUTO) 45.9 % (40.0-70.0); PLATELET COUNT (AUTO) 142 K/uL (150-450); RED CELL DISTRIBUTION WIDTH 13.2 % (11.5-14.5); WHITE BLOOD COUNT (AUTO) 6.2 K/uL (4.5-11.0)
[2023-08-30] MEDS: SODIUM CHLORIDE 0.9% 1,000 ML IV ONE (12:31)
[2023-08-30 12:33] LABS: ANION GAP 14 mmol/L (8-16); CALCIUM, TOTAL 9.2 mg/dL (8.8-10.5); CARBON DIOXIDE 24 mmol/L (22-29); CHLORIDE 105 mmol/L (98-107); CREATININE 0.81 mg/dL (0.60-1.30); GLOMERULAR FILTR. RATE CALC > 60 mL/min (>60); GLUCOSE,RANDOM 112 mg/dL (70-110); POTASSIUM 3.7 mmol/L (3.5-5.1); SODIUM SERUM 143 mmol/L (136-145); UREA NITROGEN, BLOOD 8 mg/dL (7-18)
[2023-08-30 12:38] LABS: ALANINE AMINOTRANSFERASE 27 U/L (12-78); ALKALINE PHOSPHATASE 73 U/L (46-116); ASPARTATE AMINOTRANSFERASE 26 U/L (15-37); BILIRUBIN,TOTAL 0.8 mg/dL (0.1-1.0); LIPASE 40 U/L (16-77); TOTAL PROTEIN, SERUM 8.3 g/dL (6.4-8.2)
[2023-08-30 12:43] LABS: TROPONIN I-HIGH SENSITIVITY Less Than 4 ng/L (<51)
[2023-08-30] MEDS: LORazepam 2 MG/ML VIAL IVP ONE (13:00)
[2023-08-30 13:11] VITALS: TEMP 98.1
[2023-08-30 13:35] LABS: COVID AG,FIA SOURCE NASAL SWAB
[2023-08-30 13:53] LABS: SARS-COV2 (COVID) ANTIGEN,FIA Negative (Negative)
[2023-08-30 13:54] LABS: INFLUENZA TYPE A NEGATIVE FOR TYPE A (NEGATIVE); INFLUENZA TYPE B NEGATIVE FOR TYPE B (NEGATIVE)
[2023-08-30 14:06] VITALS: BP 124/88; PULSE 80; RESP 18
== END 2023-08-30 14:08 | disposition home or self-care (01) ==
LOC: EMS 12:18
DX: F41.9 Anxiety disorder, unspecified (principal); M19.90 Unspecified osteoarthritis, unspecified site; F32.A Depression, unspecified; I10 Essential (primary) hypertension; Z87.891 Personal history of nicotine dependence; Z98.890 Other specified postprocedural states; Z20.822 Contact with and (suspected) exposure to COVID-19
CPT/HCPCS: 99284; 96374; 96361; 87426; 80053; 83690; 84484; 85025; 87804; 36415; 93005; J2060; J7030

== ENCOUNTER 2023-09-05 14:05 | Emergency (ER) | payer OTHER ==
[~2023-09-05] VITALS: Ht 154.9 cm; Wt 72.7 kg
[~2023-09-05 14:05] MED LIST changes: +BUPR-49 PO; +ETAN50PE2 SQ; -MIRT-89 PO; +MIRT45TA83 PO; -NALT50TA33 PO; +OMEP40CA21 PO
[2023-09-05 14:08] VITALS: BP 143/94; PULSE 122; RESP 22; TEMP 98.3
[2023-09-05] MEDS ORDERED: HYDR-4527 PO (14:09)
[2023-09-05 15:07] LABS: BASOPHILS % (AUTO) 1.1 % (0.0-2.0); EOSINOPHILS % (AUTO) 1.1 % (1.0-6.0); HEMATOCRIT 40.3 % (36-46); HEMOGLOBIN 14.2 g/dL (12.0-16.0); LYMPHOCYTES # (AUTO) 2.6 K/uL (1.0-4.8); LYMPHOCYTES % (AUTO) 37.6 % (22.0-44.0); MEAN CORPUSCULAR HEMOGLOBIN 33.1 pg (26.0-34.0); MEAN CORPUSCULAR HGB CONC 35.2 G/dL (31.0-37.0); MEAN CORPUSCULAR VOLUME 94 fL (80-100); MONOCYTES # (AUTO) 0.5 K/uL (0.1-1.0); MONOCYTES % (AUTO) 6.7 % (2.0-9.0); NEUTROPHILS # (AUTO) 3.7 K/uL (1.8-7.7); NEUTROPHILS % (AUTO) 53.5 % (40.0-70.0); PLATELET COUNT (AUTO) 132 K/uL (150-450); RED BLOOD CELL COUNT(AUTO) 4.28 MIL/uL (4.00-5.20); WHITE BLOOD COUNT (AUTO) 6.8 K/uL (4.5-11.0)
[2023-09-05 15:14] LABS: ANION GAP 14 mmol/L (8-16); CALCIUM, TOTAL 9.3 mg/dL (8.8-10.5); CARBON DIOXIDE 26 mmol/L (22-29); CHLORIDE 100 mmol/L (98-107); CREATININE 0.88 mg/dL (0.60-1.30); GLOMERULAR FILTR. RATE CALC > 60 mL/min (>60); GLUCOSE,RANDOM 128 mg/dL (70-110); POTASSIUM 3.1 mmol/L (3.5-5.1); SODIUM SERUM 140 mmol/L (136-145); UREA NITROGEN, BLOOD 6 mg/dL (7-18)
[2023-09-05 15:16] LABS: ALANINE AMINOTRANSFERASE 27 U/L (12-78); ALBUMIN 4.1 g/dL (3.4-5.0); ALKALINE PHOSPHATASE 72 U/L (46-116); ASPARTATE AMINOTRANSFERASE 26 U/L (15-37); BILIRUBIN,TOTAL 1.2 mg/dL (0.1-1.0); TOTAL PROTEIN, SERUM 8.4 g/dL (6.4-8.2)
[2023-09-05 15:32] LABS: ALCOHOL, BLOOD (SERUM) < 3 mg/dL (0-10)
== END 2023-09-05 16:53 | disposition left against medical advice (07) ==
LOC: EMS 14:06
DX: F41.9 Anxiety disorder, unspecified (principal); Z53.21 Procedure and treatment not carried out due to patient leaving prior to being seen by health care provider
CPT/HCPCS: 80053; 36415; 85025; G0480

== ENCOUNTER 2023-09-18 08:08 | Emergency (ER) | payer OTHER ==
[~2023-09-18] VITALS: Ht 154.9 cm; Wt 64.1 kg
[~2023-09-18 08:08] MED LIST changes: +HYDR-4527 PO
[2023-09-18 08:19] VITALS: TEMP 98.3
[2023-09-18] MEDS ORDERED: ONDA-104 PO (12:15)
[2023-09-18] MEDS ORDERED: LORA-1000 PO (12:15)
[2023-09-18 12:58] VITALS: BP 128/74; PULSE 88; RESP 16
[2023-09-18] MEDS: LORazepam 1 MG TABLET PO ONE (12:58)
== END 2023-09-18 13:07 | disposition home or self-care (01) ==
LOC: EMS 08:08
DX: F41.9 Anxiety disorder, unspecified (principal); M19.90 Unspecified osteoarthritis, unspecified site; F32.A Depression, unspecified; I10 Essential (primary) hypertension; Z87.891 Personal history of nicotine dependence; Z98.890 Other specified postprocedural states
CPT/HCPCS: 99283

== ENCOUNTER 2023-09-22 14:32 | Emergency (ER) | payer OTHER ==
[~2023-09-22] VITALS: Ht 154.9 cm; Wt 65.9 kg
[~2023-09-22 14:32] MED LIST changes: +ONDA-104 PO
[2023-09-22 14:47] VITALS: TEMP 97.9
[2023-09-22 15:43] LABS: BASOPHILS % (AUTO) 0.6 % (0.0-2.0); EOSINOPHILS % (AUTO) 1.9 % (1.0-6.0); HEMATOCRIT 40.8 % (36-46); HEMOGLOBIN 13.9 g/dL (12.0-16.0); LYMPHOCYTES # (AUTO) 2.3 K/uL (1.0-4.8); LYMPHOCYTES % (AUTO) 41.5 % (22.0-44.0); MEAN CORPUSCULAR HEMOGLOBIN 32.7 pg (26.0-34.0); MEAN CORPUSCULAR VOLUME 96 fL (80-100); MONOCYTES # (AUTO) 0.4 K/uL (0.1-1.0); MONOCYTES % (AUTO) 7.4 % (2.0-9.0); NEUTROPHILS # (AUTO) 2.7 K/uL (1.8-7.7); NEUTROPHILS % (AUTO) 48.6 % (40.0-70.0); PLATELET COUNT (AUTO) 120 K/uL (150-450); RED BLOOD CELL COUNT(AUTO) 4.24 MIL/uL (4.00-5.20); RED CELL DISTRIBUTION WIDTH 12.7 % (11.5-14.5); WHITE BLOOD COUNT (AUTO) 5.5 K/uL (4.5-11.0)
[2023-09-22 16:02] LABS: TROPONIN I-HIGH SENSITIVITY Less Than 4 ng/L (<51)
[2023-09-22 16:07] LABS: ANION GAP 11 mmol/L (8-16); CALCIUM, TOTAL 9.7 mg/dL (8.8-10.5); CARBON DIOXIDE 26 mmol/L (22-29); CHLORIDE 105 mmol/L (98-107); GLOMERULAR FILTR. RATE CALC > 60 mL/min (>60); GLUCOSE,RANDOM 104 mg/dL (70-110); POTASSIUM 3.4 mmol/L (3.5-5.1); SODIUM SERUM 142 mmol/L (136-145); UREA NITROGEN, BLOOD 4 mg/dL (7-18)
[2023-09-22 16:23] LABS: ALANINE AMINOTRANSFERASE 32 U/L (12-78); ALBUMIN 3.9 g/dL (3.4-5.0); ALKALINE PHOSPHATASE 71 U/L (46-116); ASPARTATE AMINOTRANSFERASE 32 U/L (15-37); BILIRUBIN,TOTAL 0.8 mg/dL (0.1-1.0); TOTAL PROTEIN, SERUM 7.8 g/dL (6.4-8.2)
[2023-09-22 18:36] LABS: APPEARANCE,URINE CLEAR (CLEAR); BILIRUBIN,URINE NEGATIVE (NEGATIVE); COLOR,URINE COLORLESS (YELLOW); GLUCOSE, URINE (UA) NEGATIVE (NEGATIVE); KETONES,URINE NEGATIVE (NEGATIVE); LEUKOCYTE ESTERASE ,URINE NEGATIVE (NEGATIVE); NITRATE,URINE NEGATIVE (NEGATIVE); OCCULT BLOOD,URINE NEGATIVE (NEGATIVE); PROTEIN,URINE NEGATIVE (NEGATIVE); SPECIFIC GRAVITIY, URINE 1.005 (1.003-1.030); UROBILINOGEN,URINE <=1.0 mg/dL (<=1.0)
[2023-09-22 18:37] VITALS: BP 120/76; PULSE 85; RESP 18
== END 2023-09-22 18:52 | disposition home or self-care (01) ==
LOC: EMS 14:44
DX: R07.89 Other chest pain (principal); F41.9 Anxiety disorder, unspecified; I10 Essential (primary) hypertension; F32.A Depression, unspecified; Z87.891 Personal history of nicotine dependence; Z98.890 Other specified postprocedural states
CPT/HCPCS: 71045; 80053; 81003; 84484; 85025; 93005; 99285; 36415-L1; 36415-TC

== ENCOUNTER → 2023-09-24 | Emergency (ER) | payer OTHER ==
[~2023-09-24] VITALS: Ht 154.9 cm; Wt 65.9 kg
[2023-09-24 11:23] VITALS: TEMP 97.9
[2023-09-24 13:12] LABS: BASOPHILS % (AUTO) 0.5 % (0.0-2.0); EOSINOPHILS % (AUTO) 0.7 % (1.0-6.0); HEMATOCRIT 40.6 % (36-46); HEMOGLOBIN 14.2 g/dL (12.0-16.0); LYMPHOCYTES # (AUTO) 1.3 K/uL (1.0-4.8); LYMPHOCYTES % (AUTO) 27.6 % (22.0-44.0); MEAN CORPUSCULAR HEMOGLOBIN 33.4 pg (26.0-34.0); MEAN CORPUSCULAR VOLUME 95 fL (80-100); MONOCYTES # (AUTO) 0.4 K/uL (0.1-1.0); MONOCYTES % (AUTO) 8.6 % (2.0-9.0); NEUTROPHILS % (AUTO) 62.6 % (40.0-70.0); PLATELET COUNT (AUTO) 124 K/uL (150-450); RED BLOOD CELL COUNT(AUTO) 4.26 MIL/uL (4.00-5.20); RED CELL DISTRIBUTION WIDTH 12.5 % (11.5-14.5); WHITE BLOOD COUNT (AUTO) 4.7 K/uL (4.5-11.0)
[2023-09-24 13:32] LABS: APPEARANCE,URINE CLEAR (CLEAR); BILIRUBIN,URINE NEGATIVE (NEGATIVE); COLOR,URINE COLORLESS (YELLOW); GLUCOSE, URINE (UA) NEGATIVE (NEGATIVE); KETONES,URINE TRACE mg/dL (NEGATIVE); LEUKOCYTE ESTERASE ,URINE NEGATIVE (NEGATIVE); NITRATE,URINE NEGATIVE (NEGATIVE); OCCULT BLOOD,URINE NEGATIVE (NEGATIVE); PH,URINE 7.5 (5.0-8.0); PROTEIN,URINE NEGATIVE (NEGATIVE); SPECIFIC GRAVITIY, URINE 1.005 (1.003-1.030); UROBILINOGEN,URINE <=1.0 mg/dL (<=1.0)
[2023-09-24 13:35] LABS: ANION GAP 12 mmol/L (8-16); CALCIUM, TOTAL 9.2 mg/dL (8.8-10.5); CARBON DIOXIDE 25 mmol/L (22-29); CHLORIDE 105 mmol/L (98-107); CREATININE 0.75 mg/dL (0.60-1.30); GLOMERULAR FILTR. RATE CALC > 60 mL/min (>60); GLUCOSE,RANDOM 111 mg/dL (70-110); POTASSIUM 3.8 mmol/L (3.5-5.1); SODIUM SERUM 142 mmol/L (136-145); UREA NITROGEN, BLOOD 3 mg/dL (7-18)
[2023-09-24 14:01] VITALS: BP 148/80; PULSE 68; RESP 20
== END | disposition still patient (30) ==
LOC: EMS 11:21
DX: I10 Essential (primary) hypertension (principal); F41.9 Anxiety disorder, unspecified; F32.A Depression, unspecified; M19.90 Unspecified osteoarthritis, unspecified site; Z87.891 Personal history of nicotine dependence; Z98.890 Other specified postprocedural states
CPT/HCPCS: 80048; 81003; 85025; 99283

== ENCOUNTER 2023-10-02 12:11 | Emergency (ER) | payer OTHER ==
[~2023-10-02] VITALS: Ht 154.9 cm; Wt 65.9 kg
[2023-10-02 12:12] VITALS: TEMP 97.7
[2023-10-02] MEDS: SODIUM CHLORIDE 0.9% 1,000 ML IV ONE (16:07)
[2023-10-02 16:16] LABS: BASOPHILS % (AUTO) 0.5 % (0.0-2.0); EOSINOPHILS % (AUTO) 0.8 % (1.0-6.0); HEMATOCRIT 41.4 % (36-46); HEMOGLOBIN 14.4 g/dL (12.0-16.0); LYMPHOCYTES % (AUTO) 30.9 % (22.0-44.0); MEAN CORPUSCULAR HEMOGLOBIN 33.2 pg (26.0-34.0); MEAN CORPUSCULAR HGB CONC 34.7 G/dL (31.0-37.0); MEAN CORPUSCULAR VOLUME 96 fL (80-100); MONOCYTES # (AUTO) 0.5 K/uL (0.1-1.0); NEUTROPHILS # (AUTO) 3.9 K/uL (1.8-7.7); NEUTROPHILS % (AUTO) 59.8 % (40.0-70.0); PLATELET COUNT (AUTO) 150 K/uL (150-450); RED BLOOD CELL COUNT(AUTO) 4.32 MIL/uL (4.00-5.20); RED CELL DISTRIBUTION WIDTH 12.9 % (11.5-14.5); WHITE BLOOD COUNT (AUTO) 6.5 K/uL (4.5-11.0)
[2023-10-02 16:27] LABS: ANION GAP 12 mmol/L (8-16); CALCIUM, TOTAL 9.6 mg/dL (8.8-10.5); CARBON DIOXIDE 26 mmol/L (22-29); CHLORIDE 103 mmol/L (98-107); CREATININE 0.74 mg/dL (0.60-1.30); GLOMERULAR FILTR. RATE CALC > 60 mL/min (>60); GLUCOSE,RANDOM 113 mg/dL (70-110); POTASSIUM 3.9 mmol/L (3.5-5.1); SODIUM SERUM 141 mmol/L (136-145); UREA NITROGEN, BLOOD 3 mg/dL (7-18)
[2023-10-02 16:33] LABS: ALANINE AMINOTRANSFERASE 23 U/L (12-78); ALKALINE PHOSPHATASE 74 U/L (46-116); ASPARTATE AMINOTRANSFERASE 31 U/L (15-37); BILIRUBIN,TOTAL 0.9 mg/dL (0.1-1.0); LIPASE 40 U/L (16-77)
[2023-10-02 16:49] LABS: TROPONIN I-HIGH SENSITIVITY Less Than 4 ng/L (<51)
[2023-10-02 17:03] LABS: APPEARANCE,URINE CLEAR (CLEAR); BILIRUBIN,URINE NEGATIVE (NEGATIVE); COLOR,URINE COLORLESS (YELLOW); GLUCOSE, URINE (UA) NEGATIVE (NEGATIVE); KETONES,URINE NEGATIVE (NEGATIVE); LEUKOCYTE ESTERASE ,URINE NEGATIVE (NEGATIVE); NITRATE,URINE NEGATIVE (NEGATIVE); OCCULT BLOOD,URINE NEGATIVE (NEGATIVE); PH,URINE 7.5 (5.0-8.0); PROTEIN,URINE NEGATIVE (NEGATIVE); SPECIFIC GRAVITIY, URINE 1.007 (1.003-1.030); UROBILINOGEN,URINE <=1.0 mg/dL (<=1.0)
[2023-10-02 17:15] VITALS: BP 122/80; PULSE 96; RESP 16
== END 2023-10-02 18:18 | disposition home or self-care (01) ==
LOC: EMS 12:29
DX: F41.9 Anxiety disorder, unspecified (principal); M19.90 Unspecified osteoarthritis, unspecified site; F32.A Depression, unspecified; I10 Essential (primary) hypertension; Z87.891 Personal history of nicotine dependence; Z98.890 Other specified postprocedural states
CPT/HCPCS: 99284; 96360; 80053; 81003; 83690; 84484; 85025; 36415; 93005; J7030

== ENCOUNTER 2023-10-08 21:41 | Emergency (ER) | payer OTHER ==
[~2023-10-08] VITALS: Ht 154.9 cm; Wt 65.9 kg
[2023-10-08 21:57] VITALS: TEMP 97.8
[2023-10-08 23:08] VITALS: BP 137/93; PULSE 88; RESP 16
[2023-10-08] MEDS ORDERED: METO25 PO (23:45)
== END 2023-10-09 00:26 | disposition home or self-care (01) ==
LOC: EMS 21:41
DX: I10 Essential (primary) hypertension (principal); F41.9 Anxiety disorder, unspecified; F32.A Depression, unspecified; Z87.891 Personal history of nicotine dependence; Z98.890 Other specified postprocedural states
CPT/HCPCS: 99283; Z7502

== ENCOUNTER 2023-10-12 18:38 | Emergency (ER) | payer OTHER ==
[~2023-10-12] VITALS: Ht 154.9 cm; Wt 65.9 kg
[~2023-10-12 18:38] MED LIST changes: +METO25 PO
[2023-10-12 19:00] VITALS: BP 124/82; PULSE 83; RESP 18; TEMP 97.9
== END 2023-10-12 22:03 | disposition left against medical advice (07) ==
LOC: EMS 18:47
DX: R19.7 Diarrhea, unspecified (principal); Z53.21 Procedure and treatment not carried out due to patient leaving prior to being seen by health care provider

== ENCOUNTER 2023-10-17 06:15 | Emergency (ER) | payer OTHER ==
[~2023-10-17] VITALS: Ht 154.9 cm; Wt 65.9 kg
[2023-10-17 06:20] VITALS: BP 109/68; PULSE 87; RESP 20; TEMP 97.9
[2023-10-17 07:00] LABS: BASOPHILS % (AUTO) 0.6 % (0.0-2.0); EOSINOPHILS % (AUTO) 1.5 % (1.0-6.0); HEMATOCRIT 40.7 % (36-46); HEMOGLOBIN 13.8 g/dL (12.0-16.0); LYMPHOCYTES # (AUTO) 1.6 K/uL (1.0-4.8); LYMPHOCYTES % (AUTO) 40.4 % (22.0-44.0); MEAN CORPUSCULAR HEMOGLOBIN 32.6 pg (26.0-34.0); MEAN CORPUSCULAR HGB CONC 33.9 G/dL (31.0-37.0); MEAN CORPUSCULAR VOLUME 96 fL (80-100); MONOCYTES # (AUTO) 0.3 K/uL (0.1-1.0); MONOCYTES % (AUTO) 8.1 % (2.0-9.0); NEUTROPHILS % (AUTO) 49.4 % (40.0-70.0); PLATELET COUNT (AUTO) 132 K/uL (150-450); RED BLOOD CELL COUNT(AUTO) 4.24 MIL/uL (4.00-5.20); RED CELL DISTRIBUTION WIDTH 12.7 % (11.5-14.5)
[2023-10-17] MEDS ORDERED: IBUP-1492 PO (07:17)
[2023-10-17] MEDS: IBUPROFEN 600 MG TABLET PO ONE (07:17)
[2023-10-17 07:25] LABS: ANION GAP 7 mmol/L (8-16); CALCIUM, TOTAL 9.5 mg/dL (8.8-10.5); CARBON DIOXIDE 29 mmol/L (22-29); CHLORIDE 105 mmol/L (98-107); CREATININE 0.76 mg/dL (0.60-1.30); GLOMERULAR FILTR. RATE CALC > 60 mL/min (>60); GLUCOSE,RANDOM 125 mg/dL (70-110); POTASSIUM 3.7 mmol/L (3.5-5.1); SODIUM SERUM 141 mmol/L (136-145); UREA NITROGEN, BLOOD 4 mg/dL (7-18)
== END 2023-10-17 07:41 | disposition home or self-care (01) ==
LOC: EMS 06:16
DX: M54.12 Radiculopathy, cervical region (principal); I10 Essential (primary) hypertension; Z88.8 Allergy status to other drugs, medicaments and biological substances
CPT/HCPCS: 80048; 85025; 99283

== ENCOUNTER 2023-10-20 02:42 | Emergency (ER) | payer OTHER ==
[~2023-10-20] VITALS: Ht 154.9 cm; Wt 70.0 kg
[~2023-10-20 02:42] MED LIST changes: +IBUP-1492 PO
[2023-10-20 02:48] VITALS: BP 127/74; PULSE 72; RESP 20; TEMP 97.8
[2023-10-20] MEDS: DEXAMETHASONE SOD PHOS 4 MG/ML 5 ML VIAL IM ONE (03:24)
== END 2023-10-20 03:30 | disposition home or self-care (01) ==
LOC: EMS 02:42
DX: S46.812A Strain of other muscles, fascia and tendons at shoulder and upper arm level, left arm, initial encounter (principal); I10 Essential (primary) hypertension; Z88.8 Allergy status to other drugs, medicaments and biological substances; X58.XXXA Exposure to other specified factors, initial encounter; Y93.89 Activity, other specified; Y92.89 Other specified places as the place of occurrence of the external cause; Y99.8 Other external cause status
CPT/HCPCS: 99283; 96372; J1100

== ENCOUNTER 2023-10-22 00:53 | Emergency (ER) | payer OTHER ==
[~2023-10-22] VITALS: Ht 154.9 cm; Wt 63.6 kg
[2023-10-22 00:59] VITALS: BP 138/74; PULSE 111; RESP 18; TEMP 97.5
[2023-10-22] MEDS: DiphenhydrAMINE HCL 50 MG CAPSULE PO ONE (01:29)
[2023-10-22] MEDS: FAMOTIDINE 20 MG TABLET PO ONE (01:29)
== END 2023-10-22 01:44 | disposition home or self-care (01) ==
LOC: EMS 00:54
DX: T78.49XA Other allergy, initial encounter (principal); I10 Essential (primary) hypertension; Z88.8 Allergy status to other drugs, medicaments and biological substances; X58.XXXA Exposure to other specified factors, initial encounter
CPT/HCPCS: 99282; Z7502; Z7610

== ENCOUNTER 2023-10-25 07:02 | Emergency (ER) | payer OTHER ==
[~2023-10-25] VITALS: Ht 154.9 cm; Wt 63.6 kg
[2023-10-25 07:21] VITALS: TEMP 98.7
[2023-10-25 07:52] LABS: BASOPHILS % (AUTO) 0.3 % (0.0-2.0); EOSINOPHILS % (AUTO) 0.5 % (1.0-6.0); HEMOGLOBIN 15.7 g/dL (12.0-16.0); LYMPHOCYTES # (AUTO) 1.7 K/uL (1.0-4.8); LYMPHOCYTES % (AUTO) 26.3 % (22.0-44.0); MEAN CORPUSCULAR HEMOGLOBIN 33.1 pg (26.0-34.0); MEAN CORPUSCULAR HGB CONC 34.9 G/dL (31.0-37.0); MEAN CORPUSCULAR VOLUME 95 fL (80-100); MONOCYTES # (AUTO) 0.4 K/uL (0.1-1.0); MONOCYTES % (AUTO) 6.8 % (2.0-9.0); NEUTROPHILS # (AUTO) 4.2 K/uL (1.8-7.7); NEUTROPHILS % (AUTO) 66.1 % (40.0-70.0); PLATELET COUNT (AUTO) 164 K/uL (150-450); RED BLOOD CELL COUNT(AUTO) 4.74 MIL/uL (4.00-5.20); RED CELL DISTRIBUTION WIDTH 12.6 % (11.5-14.5); WHITE BLOOD COUNT (AUTO) 6.4 K/uL (4.5-11.0)
[2023-10-25] MEDS: ONDANSETRON HCL 4 MG/2 ML VIAL IVP ONE (08:03)
[2023-10-25] MEDS: SODIUM CHLORIDE 0.9% 1,900 ML IV ONE (08:03)
[2023-10-25 08:12] LABS: ANION GAP 8 mmol/L (8-16); CALCIUM, TOTAL 10.1 mg/dL (8.8-10.5); CARBON DIOXIDE 29 mmol/L (22-29); CHLORIDE 102 mmol/L (98-107); CREATININE 0.66 mg/dL (0.60-1.30); GLOMERULAR FILTR. RATE CALC > 60 mL/min (>60); GLUCOSE,RANDOM 114 mg/dL (70-110); LIPASE 38 U/L (16-77); POTASSIUM 3.4 mmol/L (3.5-5.1); SODIUM SERUM 139 mmol/L (136-145); UREA NITROGEN, BLOOD 5 mg/dL (7-18)
[2023-10-25 08:19] LABS: TROPONIN I-HIGH SENSITIVITY 4 ng/L (<51)
[2023-10-25] MEDS: MAGNESIUM CITRATE [LEMON] 300 ML ORAL SOLUTION PO ONE (08:52)
[2023-10-25 09:08] LABS: APPEARANCE,URINE TURBID (CLEAR); BILIRUBIN,URINE NEGATIVE (NEGATIVE); COLOR,URINE YELLOW (YELLOW); GLUCOSE, URINE (UA) NEGATIVE (NEGATIVE); KETONES,URINE 40-60 mg/dL (NEGATIVE); LEUKOCYTE ESTERASE ,URINE NEGATIVE (NEGATIVE); NITRATE,URINE NEGATIVE (NEGATIVE); OCCULT BLOOD,URINE NEGATIVE (NEGATIVE); PH,URINE 8.5 (5.0-8.0); PROTEIN,URINE 30-70 mg/dL (NEGATIVE); SPECIFIC GRAVITIY, URINE 1.015 (1.003-1.030); UROBILINOGEN,URINE <=1.0 mg/dL (<=1.0)
[2023-10-25 10:45] VITALS: BP 137/83; PULSE 83; RESP 18
== END 2023-10-25 10:47 | disposition home or self-care (01) ==
LOC: EMS 07:03
DX: K59.00 Constipation, unspecified (principal); R10.9 Unspecified abdominal pain; I10 Essential (primary) hypertension; Z88.8 Allergy status to other drugs, medicaments and biological substances
CPT/HCPCS: 99283; 96374; 96361; 80048; 81003; 83690; 84484; 85025; 36415; J2405; J7030

== ENCOUNTER 2023-10-29 07:22 | Emergency (ER) | payer OTHER ==
[~2023-10-29] VITALS: Ht 154.9 cm; Wt 61.4 kg
[~2023-10-29 07:22] MED LIST changes: -AMLO5TAB66 PO; -BUPR-49 PO; -CETI10TA58 PO; -DULO20CA71 PO; -FLUT16H NASAL; -GABA-1216 PO; -HYDR-4527 PO; -IBUP-1492 PO; -LUBI8CAP5 PO; -MELA5TAB40 PO; -METO-408 PO; -METO25 PO; -MIRT45TA83 PO; -ONDA-104 PO; -POLY119P3 PO; -PREG25 PO
[2023-10-29 07:29] VITALS: TEMP 97.7
[2023-10-29 07:38] VITALS: BP 103/64; PULSE 83; RESP 20
== END 2023-10-29 07:54 | disposition home or self-care (01) ==
LOC: EMS 07:22
DX: T78.40XA Allergy, unspecified, initial encounter (principal); I10 Essential (primary) hypertension; F41.9 Anxiety disorder, unspecified; F32.A Depression, unspecified; Z87.891 Personal history of nicotine dependence; Z98.890 Other specified postprocedural states; X58.XXXA Exposure to other specified factors, initial encounter
CPT/HCPCS: 99281; Z7502

== ENCOUNTER 2023-11-18 04:21 | Emergency (ER) | payer OTHER ==
[~2023-11-18] VITALS: Ht 154.9 cm; Wt 68.0 kg
[2023-11-18 04:31] VITALS: TEMP 97.4
[2023-11-18] MEDS ORDERED: TRAM50TA5 PO (06:37)
[2023-11-18] MEDS ORDERED: HYDR30CR39 TP (06:37)
[2023-11-18] MEDS ORDERED: DOXY-354 PO (06:37)
[2023-11-18 06:46] VITALS: BP 126/76; PULSE 82; RESP 16
== END 2023-11-18 06:51 | disposition home or self-care (01) ==
LOC: EMS 04:21
DX: L02.426 Furuncle of left lower limb (principal); G89.4 Chronic pain syndrome; M06.9 Rheumatoid arthritis, unspecified; L24.9 Irritant contact dermatitis, unspecified cause; I10 Essential (primary) hypertension; Z79.899 Other long term (current) drug therapy
CPT/HCPCS: 99283; Z7502

== ENCOUNTER 2023-11-25 17:56 | Emergency (ER) | payer OTHER ==
[~2023-11-25] VITALS: Ht 154.9 cm; Wt 61.4 kg
[~2023-11-25 17:56] MED LIST changes: +DOXY-354 PO; +HYDR30CR39 TP; +TRAM50TA5 PO
[2023-11-25 18:07] VITALS: BP 129/78; PULSE 104; RESP 18; TEMP 98
[2023-11-25] MEDS ORDERED: FAMO20TA8 PO (18:09)
[2023-11-25] MEDS ORDERED: MINE133E26 PR (19:46)
== END 2023-11-25 22:00 | disposition home or self-care (01) ==
LOC: EMS 17:57
DX: K59.00 Constipation, unspecified (principal); I10 Essential (primary) hypertension; F41.9 Anxiety disorder, unspecified; F32.A Depression, unspecified; Z87.891 Personal history of nicotine dependence; Z98.890 Other specified postprocedural states
CPT/HCPCS: 74018; 99283

== ENCOUNTER 2024-01-18 11:58 | Emergency (ER) | payer OTHER ==
[~2024-01-18] VITALS: Ht 154.9 cm; Wt 61.4 kg
[~2024-01-18 11:58] MED LIST changes: -DICY20TA95 PO; -DOXY-354 PO; -FAMO20 PO; +FAMO20TA8 PO; -HYDR30CR39 TP; +MINE133E26 PR; -OMEP40CA21 PO
[2024-01-18 12:11] VITALS: BP 128/76; PULSE 96; RESP 18; TEMP 97.9; O2SAT 98
[2024-01-18] MEDS ORDERED: ONDA-104 PO (12:36)
[2024-01-18] MEDS ORDERED: CHOL500043 PO (12:36)
[2024-01-18] MEDS ORDERED: BLAC40CA PO (12:36)
[2024-01-18] MEDS ORDERED: OMEP20 PO (12:36)
[2024-01-18] MEDS ORDERED: PLEC3TAB2 PO (12:36)
[2024-01-18] MEDS ORDERED: MIRT-89 PO (12:36)
[2024-01-18] MEDS ORDERED: FOLI0.4T14 PO (12:36)
[2024-01-18] MEDS ORDERED: ACYC-138 PO (14:07)
[2024-01-18 15:34] LABS: BASOPHILS % (AUTO) 0.8 % (0.0-2.0); EOSINOPHILS % (AUTO) 1.4 % (1.0-6.0); HEMATOCRIT 39.1 % (36-46); HEMOGLOBIN 13.2 g/dL (12.0-16.0); LYMPHOCYTES % (AUTO) 36.3 % (22.0-44.0); MEAN CORPUSCULAR HEMOGLOBIN 32.5 pg (26.0-34.0); MEAN CORPUSCULAR HGB CONC 33.7 G/dL (31.0-37.0); MEAN CORPUSCULAR VOLUME 96 fL (80-100); MONOCYTES # (AUTO) 0.3 K/uL (0.1-1.0); MONOCYTES % (AUTO) 5.6 % (2.0-9.0); NEUTROPHILS # (AUTO) 3.1 K/uL (1.8-7.7); NEUTROPHILS % (AUTO) 55.9 % (40.0-70.0); PLATELET COUNT (AUTO) 131 K/uL (150-450); RED BLOOD CELL COUNT(AUTO) 4.05 MIL/uL (4.00-5.20); RED CELL DISTRIBUTION WIDTH 12.5 % (11.5-14.5); WHITE BLOOD COUNT (AUTO) 5.5 K/uL (4.5-11.0)
[2024-01-18 15:41] LABS: ANION GAP 11 mmol/L (8-16); CARBON DIOXIDE 25 mmol/L (22-29); CHLORIDE 105 mmol/L (98-107); CREATININE 0.71 mg/dL (0.60-1.30); GLOMERULAR FILTR. RATE CALC > 60 mL/min (>60); GLUCOSE,RANDOM 118 mg/dL (70-110); POTASSIUM 3.7 mmol/L (3.5-5.1); SODIUM SERUM 141 mmol/L (136-145); UREA NITROGEN, BLOOD 5 mg/dL (7-18)
[2024-01-18 15:47] LABS: ALANINE AMINOTRANSFERASE 15 U/L (12-78); ALBUMIN 3.7 g/dL (3.4-5.0); ALKALINE PHOSPHATASE 73 U/L (46-116); ASPARTATE AMINOTRANSFERASE 20 U/L (15-37); BILIRUBIN,TOTAL 0.8 mg/dL (0.1-1.0); TOTAL PROTEIN, SERUM 7.6 g/dL (6.4-8.2)
[2024-01-18 15:51] LABS: TROPONIN I-HIGH SENSITIVITY Less Than 4 ng/L (<51)
[2024-01-18 15:54] LABS: B-TYPE NATRIURETIC PEPTIDE 43 pg/mL (0-100)
[2024-01-18] MEDS ORDERED: NA P133E4 PR (16:48)
== END 2024-01-18 17:27 | disposition home or self-care (01) ==
LOC: EMS 11:58
DX: R14.0 Abdominal distension (gaseous) (principal); I10 Essential (primary) hypertension; Z88.8 Allergy status to other drugs, medicaments and biological substances
CPT/HCPCS: 80053; 83880; 84484; 85025; 93005; 99284

== ENCOUNTER 2024-01-25 21:29 | Emergency (ER) | payer OTHER ==
[~2024-01-25] VITALS: Ht 154.9 cm; Wt 60.9 kg
[~2024-01-25 21:29] MED LIST changes: +ACYC-138 PO; +BLAC40CA PO; -CHOL200074 PO; +CHOL500043 PO; -ETAN50PE2 SQ; -FAMO20TA8 PO; +FOLI0.4T14 PO; -LORA-1000 PO; -MINE133E26 PR; +MIRT-89 PO; +NA P133E4 PR; -OMEG-135 PO; +OMEP20 PO; +ONDA-104 PO; +PLEC3TAB2 PO; -TRAM50TA5 PO
[2024-01-25 21:34] VITALS: BP 143/90; PULSE 95; RESP 20; TEMP 98.6; O2SAT 100
[2024-01-26] MEDS: LORazepam 2 MG TABLET PO ONE (00:13)
== END 2024-01-26 00:32 | disposition home or self-care (01) ==
LOC: EMS 21:29
DX: F41.0 Panic disorder [episodic paroxysmal anxiety] (principal); I10 Essential (primary) hypertension; Z88.1 Allergy status to other antibiotic agents
CPT/HCPCS: 99283

== ENCOUNTER 2024-02-03 17:08 | Emergency (ER) | payer OTHER ==
[~2024-02-03] VITALS: Ht 154.9 cm; Wt 60.0 kg
[2024-02-03 17:13] VITALS: TEMP 97.9
[2024-02-03 17:40] LABS: BASOPHILS % (AUTO) 0.6 % (0.0-2.0); EOSINOPHILS % (AUTO) 2.5 % (1.0-6.0); HEMATOCRIT 40.5 % (36-46); HEMOGLOBIN 13.6 g/dL (12.0-16.0); LYMPHOCYTES # (AUTO) 2.3 K/uL (1.0-4.8); LYMPHOCYTES % (AUTO) 44.7 % (22.0-44.0); MEAN CORPUSCULAR HEMOGLOBIN 31.9 pg (26.0-34.0); MEAN CORPUSCULAR HGB CONC 33.7 G/dL (31.0-37.0); MEAN CORPUSCULAR VOLUME 95 fL (80-100); MONOCYTES # (AUTO) 0.4 K/uL (0.1-1.0); MONOCYTES % (AUTO) 8.4 % (2.0-9.0); NEUTROPHILS # (AUTO) 2.3 K/uL (1.8-7.7); NEUTROPHILS % (AUTO) 43.8 % (40.0-70.0); PLATELET COUNT (AUTO) 145 K/uL (150-450); RED BLOOD CELL COUNT(AUTO) 4.26 MIL/uL (4.00-5.20); RED CELL DISTRIBUTION WIDTH 12.6 % (11.5-14.5); WHITE BLOOD COUNT (AUTO) 5.2 K/uL (4.5-11.0)
[2024-02-03 17:46] LABS: ANION GAP 9 mmol/L (8-16); CALCIUM, TOTAL 9.2 mg/dL (8.8-10.5); CARBON DIOXIDE 28 mmol/L (22-29); CHLORIDE 104 mmol/L (98-107); CREATININE 0.74 mg/dL (0.60-1.30); GLOMERULAR FILTR. RATE CALC > 60 mL/min (>60); GLUCOSE,RANDOM 105 mg/dL (70-110); POTASSIUM 3.9 mmol/L (3.5-5.1); SODIUM SERUM 141 mmol/L (136-145); UREA NITROGEN, BLOOD 6 mg/dL (7-18)
[2024-02-03 18:57] LABS: ALBUMIN 3.6 g/dL (3.4-5.0); BILIRUBIN,DIRECT 0.2 mg/dL (0.00-0.20); BILIRUBIN,TOTAL 0.8 mg/dL (0.1-1.0); TOTAL PROTEIN, SERUM 7.6 g/dL (6.4-8.2)
[2024-02-03 19:21] VITALS: BP 112/59; PULSE 63; RESP 16; O2SAT 98
[2024-02-03 19:23] LABS: TROPONIN I-HIGH SENSITIVITY 4 ng/L (<51)
== END 2024-02-03 19:36 | disposition home or self-care (01) ==
LOC: EMS 17:08
DX: I10 Essential (primary) hypertension (principal); K59.00 Constipation, unspecified; F41.9 Anxiety disorder, unspecified; F32.A Depression, unspecified; M19.90 Unspecified osteoarthritis, unspecified site; Z88.8 Allergy status to other drugs, medicaments and biological substances; Z86.19 Personal history of other infectious and parasitic diseases; Z79.899 Other long term (current) drug therapy
CPT/HCPCS: 80048; 80076; 83690; 84484; 85025; 93005; 99284

== ENCOUNTER 2024-02-07 10:27 | Emergency (ER) | payer OTHER ==
[~2024-02-07] VITALS: Ht 154.9 cm; Wt 57.7 kg
[~2024-02-07 10:27] MED LIST changes: -NA P133E4 PR; -ONDA-104 PO; -PLEC3TAB2 PO
[2024-02-07 10:38] VITALS: TEMP 97.8
[2024-02-07] MEDS ORDERED: BUSP5TAB3 PO (10:48)
[2024-02-07] MEDS ORDERED: BUSP10TA23 PO (10:48)
[2024-02-07] MEDS ORDERED: LUBI8CAP5 PO (10:48)
[2024-02-07] MEDS ORDERED: NIFE-40 PO (10:48)
[2024-02-07] MEDS: LORazepam 2 MG/ML VIAL IVP ONE (11:24)
[2024-02-07 11:25] LABS: BASOPHILS % (AUTO) 0.6 % (0.0-2.0); EOSINOPHILS % (AUTO) 1.8 % (1.0-6.0); HEMATOCRIT 44.9 % (36-46); HEMOGLOBIN 15.2 g/dL (12.0-16.0); LYMPHOCYTES # (AUTO) 4.4 K/uL (1.0-4.8); LYMPHOCYTES % (AUTO) 49.7 % (22.0-44.0); MEAN CORPUSCULAR HEMOGLOBIN 32.3 pg (26.0-34.0); MEAN CORPUSCULAR HGB CONC 33.9 G/dL (31.0-37.0); MEAN CORPUSCULAR VOLUME 95 fL (80-100); MONOCYTES # (AUTO) 0.7 K/uL (0.1-1.0); MONOCYTES % (AUTO) 8.4 % (2.0-9.0); NEUTROPHILS # (AUTO) 3.5 K/uL (1.8-7.7); NEUTROPHILS % (AUTO) 39.5 % (40.0-70.0); RED BLOOD CELL COUNT(AUTO) 4.72 MIL/uL (4.00-5.20); RED CELL DISTRIBUTION WIDTH 12.6 % (11.5-14.5); WHITE BLOOD COUNT (AUTO) 8.8 K/uL (4.5-11.0)
[2024-02-07 11:33] LABS: ANION GAP 17 mmol/L (8-16); CARBON DIOXIDE 20 mmol/L (22-29); CHLORIDE 102 mmol/L (98-107); GLUCOSE,RANDOM 151 mg/dL (70-110); POTASSIUM 3.6 mmol/L (3.5-5.1); SODIUM SERUM 139 mmol/L (136-145); UREA NITROGEN, BLOOD 4 mg/dL (7-18)
[2024-02-07 11:34] LABS: CALCIUM, TOTAL 9.3 mg/dL (8.8-10.5); GLOMERULAR FILTR. RATE CALC > 60 mL/min (>60)
[2024-02-07 11:36] LABS: TROPONIN I-HIGH SENSITIVITY 4 ng/L (<51)
[2024-02-07 12:20] LABS: APPEARANCE,URINE CLEAR (CLEAR); BILIRUBIN,URINE NEGATIVE (NEGATIVE); COLOR,URINE COLORLESS (YELLOW); GLUCOSE, URINE (UA) NEGATIVE (NEGATIVE); KETONES,URINE TRACE mg/dL (NEGATIVE); LEUKOCYTE ESTERASE ,URINE NEGATIVE (NEGATIVE); NITRATE,URINE NEGATIVE (NEGATIVE); OCCULT BLOOD,URINE NEGATIVE (NEGATIVE); PH,URINE 7.5 (5.0-8.0); PROTEIN,URINE NEGATIVE (NEGATIVE); SPECIFIC GRAVITIY, URINE 1.004 (1.003-1.030); UROBILINOGEN,URINE <=1.0 mg/dL (<=1.0)
[2024-02-07 12:20] LABS: PLATELET COUNT (AUTO) 120 K/uL (150-450)
[2024-02-07 12:23] LABS: PH,URINE DRUG SCREEN 7.5 (5.0-8.0)
[2024-02-07 12:33] LABS: AMPHET/METH SCREEN,URINE NEGATIVE (NEGATIVE); BARBITURATE SCREEN, URINE NEGATIVE (NEGATIVE); BENZODIAZEPINES SCREEN,URINE NEGATIVE (NEGATIVE); CANNABINOID SCREEN,URINE POSITIVE (NEGATIVE); COCAINE SCREEN,URINE NEGATIVE (NEGATIVE); METHADONE SCREEN, URINE NEGATIVE (NEGATIVE); OPIATE SCREEN,URINE NEGATIVE (NEGATIVE); PHENCYCLIDINE SCREEN,URINE NEGATIVE (NEGATIVE)
[2024-02-07 12:37] LABS: ALCOHOL, URINE DRUG SCREEN NEGATIVE (NEGATIVE)
[2024-02-07] MEDS ORDERED: LORA-1000 PO (13:58)
[2024-02-07 14:10] VITALS: BP 126/82; PULSE 92; RESP 16; O2SAT 98
== END 2024-02-07 14:11 | disposition home or self-care (01) ==
LOC: EMS 11:05
DX: F41.9 Anxiety disorder, unspecified (principal); R07.89 Other chest pain; R06.4 Hyperventilation; M19.90 Unspecified osteoarthritis, unspecified site; F32.A Depression, unspecified; I10 Essential (primary) hypertension; Z86.19 Personal history of other infectious and parasitic diseases; Z87.891 Personal history of nicotine dependence; Z98.890 Other specified postprocedural states; Z88.8 Allergy status to other drugs, medicaments and biological substances
CPT/HCPCS: 99284; 96374; 80048; 81003; 84484; 85025; 85379; 36415; 93005; 80307; J2060

== ENCOUNTER 2024-03-01 14:30 | Emergency (ER) | payer OTHER ==
[~2024-03-01] VITALS: Ht 152.4 cm; Wt 59.1 kg
[~2024-03-01 14:30] MED LIST changes: +BUSP10TA23 PO; +BUSP5TAB3 PO; +LORA-1000 PO; +LUBI8CAP5 PO; +NIFE-40 PO
[2024-03-01 14:35] VITALS: BP 150/96; PULSE 86; RESP 18; TEMP 98.4; O2SAT 98
[2024-03-01] MEDS ORDERED: VALS40TA11 PO (15:19)
[2024-03-01] MEDS ORDERED: ETAN50PE2 SQ (15:19)
[2024-03-01] MEDS ORDERED: CLOB15OI21 TP (15:19)
[2024-03-01] MEDS ORDERED: NIFE-78 PO (15:19)
[2024-03-01] MEDS ORDERED: MIRT-92 PO (15:19)
[2024-03-01] MEDS ORDERED: CICL15CR15 TP (15:19)
[2024-03-01] MEDS ORDERED: SIME-12 PO (15:19)
[2024-03-01] MEDS ORDERED: POLY510P31 PO (15:19)
[2024-03-01] MEDS ORDERED: OXYC5TAB3 PO (15:19)
[2024-03-01] MEDS ORDERED: ACET-66 PO (15:19)
[2024-03-01] MEDS ORDERED: HYDR-4268 TP (15:19)
[2024-03-01] MEDS ORDERED: LINA145C PO (15:19)
[2024-03-01] MEDS ORDERED: DOXY100C61 PO (15:19)
[2024-03-01] MEDS ORDERED: VALS80TA32 PO (15:19)
== END 2024-03-01 15:28 | disposition home or self-care (01) ==
LOC: EMS 14:30
DX: K62.3 Rectal prolapse (principal); G89.18 Other acute postprocedural pain; I10 Essential (primary) hypertension; F41.9 Anxiety disorder, unspecified; F32.A Depression, unspecified; Z86.19 Personal history of other infectious and parasitic diseases; Z79.899 Other long term (current) drug therapy
CPT/HCPCS: 99283; Z7502

== ENCOUNTER 2024-07-20 13:11 | Emergency (ER) | payer OTHER ==
[~2024-07-20] VITALS: Ht 154.9 cm; Wt 57.7 kg
[~2024-07-20 13:11] MED LIST changes: +ACET-66 PO; -ACYC-138 PO; -BUSP5TAB3 PO; +CICL15CR15 TP; +CLOB15OI21 TP; +DOXY-466 PO; +ETAN50PE2 SQ; +HYDR-4268 TP; +LINA145C PO; -LORA-1000 PO; +LORA1TAB25 PO; -MIRT-89 PO; -NIFE-40 PO; +NIFE-78 PO; -OMEP20 PO; +OXYC5TAB3 PO; +POLY510P31 PO; +SIME-12 PO; +VALS80TA32 PO
[2024-07-20 13:35] VITALS: BP 153/85; PULSE 90; RESP 20; TEMP 97.1; O2SAT 96
[2024-07-20 14:45] LABS: HEMATOCRIT 39.9 % (36-46); HEMOGLOBIN 13.7 g/dL (12.0-16.0); LYMPHOCYTES # (AUTO) 1.6 K/uL (1.0-4.8); MEAN CORPUSCULAR HEMOGLOBIN 32.5 pg (26.0-34.0); MEAN CORPUSCULAR HGB CONC 34.2 G/dL (31.0-37.0); MEAN CORPUSCULAR VOLUME 95 fL (80-100); MONOCYTES # (AUTO) 0.4 K/uL (0.1-1.0); MONOCYTES % (AUTO) 7.5 % (2.0-9.0); NEUTROPHILS # (AUTO) 2.7 K/uL (1.8-7.7); NEUTROPHILS % (AUTO) 54.5 % (40.0-70.0); PLATELET COUNT (AUTO) 121 K/uL (150-450); RED CELL DISTRIBUTION WIDTH 12.6 % (11.5-14.5); WHITE BLOOD COUNT (AUTO) 4.9 K/uL (4.5-11.0)
[2024-07-20 14:53] LABS: ANION GAP 8 mmol/L (8-16); CARBON DIOXIDE 28 mmol/L (22-29); CHLORIDE 106 mmol/L (98-107); CREATININE 0.63 mg/dL (0.60-1.30); GLOMERULAR FILTR. RATE CALC > 60 mL/min (>60); GLUCOSE,RANDOM 91 mg/dL (70-110); POTASSIUM 3.8 mmol/L (3.5-5.1); SODIUM SERUM 142 mmol/L (136-145); UREA NITROGEN, BLOOD 5 mg/dL (7-18)
[2024-07-20 14:57] LABS: ALBUMIN 3.6 g/dL (3.4-5.0); BILIRUBIN,DIRECT 0.1 mg/dL (0.00-0.20); BILIRUBIN,TOTAL 0.5 mg/dL (0.1-1.0); TOTAL PROTEIN, SERUM 7.7 g/dL (6.4-8.2)
[2024-07-20 15:02] LABS: LIPASE 57 U/L (16-77)
[2024-07-20 16:19] LABS: TROPONIN I-HIGH SENSITIVITY 4 ng/L (<51)
[2024-07-20] MEDS: ACETAMINOPHEN 325 MG TABLET PO ONE (16:27)
[2024-07-20] MEDS: MAG HYDROX/ALUMINUM HYD/SIMETH 30 ML SUSPENSION UDCUP PO ONE (16:27)
== END 2024-07-20 16:51 | disposition home or self-care (01) ==
LOC: EMS 13:25
DX: R14.0 Abdominal distension (gaseous) (principal); I10 Essential (primary) hypertension; F41.9 Anxiety disorder, unspecified; Z88.8 Allergy status to other drugs, medicaments and biological substances; Z86.19 Personal history of other infectious and parasitic diseases; Z79.899 Other long term (current) drug therapy
CPT/HCPCS: 80048; 80076; 83690; 84484; 85025; 93005; 99284

== ENCOUNTER 2024-07-31 12:09 | Emergency (ER) | payer OTHER ==
[~2024-07-31] VITALS: Ht 154.9 cm; Wt 56.0 kg
[2024-07-31 12:12] VITALS: TEMP 98.2
[2024-07-31] MEDS ORDERED: VALS40TA11 PO (12:15)
[2024-07-31] MEDS ORDERED: RESM80TA PO (12:15)
[2024-07-31] MEDS ORDERED: MIRT-92 PO (12:15)
[2024-07-31] MEDS: PROPARACAINE HCL 0.5% 15 ML OPHTHALMIC SOLUTION OD ONE (13:23)
[2024-07-31] MEDS: FLUORESCEIN SODIUM 1 MG STRIP OD ONE (13:23)
[2024-07-31 13:48] VITALS: BP 122/68; PULSE 85; RESP 18; O2SAT 96
== END 2024-07-31 14:07 | disposition home or self-care (01) ==
LOC: EMS 12:10
DX: H57.89 Other specified disorders of eye and adnexa (principal); H57.8A1 Foreign body sensation, right eye; Z88.8 Allergy status to other drugs, medicaments and biological substances
CPT/HCPCS: 99283

== ENCOUNTER 2024-11-29 23:06 | Emergency (ER) | payer OTHER ==
[~2024-11-29] VITALS: Ht 154.9 cm; Wt 63.6 kg
[~2024-11-29 23:06] MED LIST changes: -BLAC40CA PO; -BUSP10TA23 PO; -CLON0.1T2 PO; -DOXY-466 PO; -HYDR-4268 TP; -LORA1TAB25 PO; -LUBI8CAP5 PO; +MIRT-92 PO; -NIFE-78 PO; -OXYC5TAB3 PO; -POLY510P31 PO; +RESM80TA PO; -SIME-12 PO; +VALS40TA11 PO; -VALS80TA32 PO
[2024-11-30 00:25] VITALS: TEMP 97.405232
[2024-11-30 02:20] LABS: CALCIUM, TOTAL 9.2 mg/dL (8.8-10.5); CREATININE 0.69 mg/dL (0.60-1.30); GLOMERULAR FILTR. RATE CALC > 60 mL/min (>60); GLUCOSE,RANDOM 98 mg/dL (70-110); SODIUM SERUM 143 mmol/L (136-145); UREA NITROGEN, BLOOD 11 mg/dL (7-18)
[2024-11-30 02:21] LABS: PLATELET COUNT (AUTO) 130 K/uL (150-450); RED BLOOD CELL COUNT(AUTO) 4.44 MIL/uL (4.00-5.20); RED CELL DISTRIBUTION WIDTH 12.7 % (11.5-14.5); WHITE BLOOD COUNT (AUTO) 5.7 K/uL (4.5-11.0)
[2024-11-30 02:26] LABS: ASPARTATE AMINOTRANSFERASE 25.0 U/L (15-37); TOTAL PROTEIN, SERUM 8.3 g/dL (6.4-8.2)
[2024-11-30 02:30] LABS: TROPONIN I-HIGH SENSITIVITY 5 ng/L (<51)
[2024-11-30 02:30] LABS: APPEARANCE,URINE CLEAR (CLEAR); GLUCOSE, URINE (UA) NEGATIVE (NEGATIVE); LEUKOCYTE ESTERASE ,URINE NEGATIVE (NEGATIVE); NITRATE,URINE NEGATIVE (NEGATIVE); OCCULT BLOOD,URINE NEGATIVE (NEGATIVE); SPECIFIC GRAVITIY, URINE 1.004 (1.003-1.030)
[2024-11-30 02:45] VITALS: BP 122/79; PULSE 74; RESP 16; O2SAT 99
== END 2024-11-30 03:08 | disposition home or self-care (01) ==
LOC: EMS 23:06
DX: I10 Essential (primary) hypertension (principal); F41.9 Anxiety disorder, unspecified; F32.A Depression, unspecified; M19.90 Unspecified osteoarthritis, unspecified site; Z98.890 Other specified postprocedural states; Z87.891 Personal history of nicotine dependence; Z86.19 Personal history of other infectious and parasitic diseases; Z79.899 Other long term (current) drug therapy; Z88.5 Allergy status to narcotic agent
CPT/HCPCS: 71045; 76700; 80048; 80076; 81003; 83690; 83880; 84484; 85025; 93005; 99285; 36415-L1; 36415-TC

== ENCOUNTER 2024-12-17 23:10 | Emergency (ER) | payer OTHER ==
[~2024-12-17 23:10] MED LIST changes: -FOLI0.4T14 PO; +FOLI0.4T3 PO
[2024-12-19] MEDS ORDERED: DIPH-1130 PO (21:51)
[2024-12-19] MEDS ORDERED: ACET-66 PO (21:51)
== END 2024-12-18 00:11 | disposition left against medical advice (07) ==
LOC: EMS 23:12
DX: R19.7 Diarrhea, unspecified (principal); I10 Essential (primary) hypertension; Z53.21 Procedure and treatment not carried out due to patient leaving prior to being seen by health care provider

== ENCOUNTER 2024-12-19 19:37 | Emergency (ER) | payer OTHER ==
[~2024-12-19] VITALS: Ht 154.9 cm; Wt 61.4 kg
[2024-12-19 19:49] VITALS: TEMP 98.6
[2024-12-19 21:13] LABS: PLATELET COUNT (AUTO) 110 K/uL (150-450); RED BLOOD CELL COUNT(AUTO) 4.08 MIL/uL (4.00-5.20); RED CELL DISTRIBUTION WIDTH 12.6 % (11.5-14.5); WHITE BLOOD COUNT (AUTO) 4.7 K/uL (4.5-11.0)
[2024-12-19] MEDS: DIPHENOXYLATE/ATROP 2.5-0.025 MG TABLET PO ONE (21:21)
[2024-12-19] MEDS: ONDANSETRON HCL 4 MG/2 ML VIAL IVP ONE (21:21)
[2024-12-19 21:22] LABS: CALCIUM, TOTAL 9.3 mg/dL (8.8-10.5); CREATININE 0.65 mg/dL (0.60-1.30); GLOMERULAR FILTR. RATE CALC > 60 mL/min (>60); GLUCOSE,RANDOM 94 mg/dL (70-110); SODIUM SERUM 142 mmol/L (136-145); UREA NITROGEN, BLOOD 8 mg/dL (7-18)
[2024-12-19] MEDS: SODIUM CHLORIDE 0.9% 1,000 ML IV ONE (21:22)
[2024-12-19 21:29] LABS: ASPARTATE AMINOTRANSFERASE 23.0 U/L (15-37); TOTAL PROTEIN, SERUM 7.5 g/dL (6.4-8.2)
[2024-12-19 21:31] LABS: TROPONIN I-HIGH SENSITIVITY 4 ng/L (<51)
[2024-12-19 21:37] LABS: APPEARANCE,URINE CLEAR (CLEAR); GLUCOSE, URINE (UA) NEGATIVE (NEGATIVE); LEUKOCYTE ESTERASE ,URINE NEGATIVE (NEGATIVE); NITRATE,URINE NEGATIVE (NEGATIVE); OCCULT BLOOD,URINE NEGATIVE (NEGATIVE); SPECIFIC GRAVITIY, URINE 1.002 (1.003-1.030)
[2024-12-19 21:46] VITALS: BP 123/68; PULSE 64; RESP 16; O2SAT 99
[2024-12-19] MEDS ORDERED: ACET-66 PO (21:51)
[2024-12-19] MEDS ORDERED: DIPH-1130 PO (21:51)
== END 2024-12-19 22:20 | disposition home or self-care (01) ==
LOC: EMS 19:47
DX: R10.32 Left lower quadrant pain (principal); I10 Essential (primary) hypertension; F41.9 Anxiety disorder, unspecified; M19.90 Unspecified osteoarthritis, unspecified site; F32.A Depression, unspecified; Z87.891 Personal history of nicotine dependence; Z98.890 Other specified postprocedural states; Z86.19 Personal history of other infectious and parasitic diseases; Z79.899 Other long term (current) drug therapy
CPT/HCPCS: 99285; 96374; 71045; 96361; 80048; 80076; 81003; 83690; 84484; 85025; 36415; J2405; J7030; 93005

== ENCOUNTER 2025-04-26 19:19 | Emergency (ER) | payer OTHER ==
[~2025-04-26] VITALS: Ht 154.9 cm; Wt 68.2 kg
[~2025-04-26 19:19] MED LIST changes: +DIPH-1130 PO
[2025-04-26 19:41] VITALS: BP 121/83; PULSE 86; RESP 16; TEMP 97.7; O2SAT 99
== END 2025-04-26 20:11 | disposition left against medical advice (07) ==
LOC: EMS 19:19
DX: R42 Dizziness and giddiness (principal); Z53.21 Procedure and treatment not carried out due to patient leaving prior to being seen by health care provider
CPT/HCPCS: 99281; Z7502